=== PATIENT | female | born 1990 | race Caucasian/White ===

== ENCOUNTER → 2021-11-13 16:00 | Outpatient (ROUT) | payer MEDICAID, SELFPAY | PROVIDERS: PCP Family Medicine; Visit Provider Dermatology | DX: L03.211 Cellulitis of face (principal) | CPT/HCPCS: 87070; 87075; 87077; 87147; 87186; 87205 ==

== ENCOUNTER → 2022-03-27 11:41 | Outpatient (CLI) | payer OTHER, MEDICAID, SELFPAY | PROVIDERS: PCP Family Medicine; Visit Provider Physician Assistant Medical | DX: J02.9 Acute pharyngitis, unspecified (principal) | CPT/HCPCS: 87880 ==

== ENCOUNTER → 2022-06-11 14:41 | Outpatient (CLI) | payer OTHER, MEDICAID, SELFPAY ==
[2022-06-11 20:16] LABS: Urine N gonorrhoeae NOT DETECTED
[2022-06-11 20:33] LABS: Urine Chlamydia NOT DETECTED
== END ==
PROVIDERS: Visit Provider Obstetrics & Gynecology
DX: Z34.81 Encounter for supervision of other normal pregnancy, first trimester (principal); Z3A.08 8 weeks gestation of pregnancy
CPT/HCPCS: 87491; 87591

== ENCOUNTER → 2022-06-13 16:40 | Outpatient (CLI) | payer OTHER, MEDICAID, SELFPAY ==
--- NOTE | 2022-06-13 16:44 | DI.US.S_ITS ---
PROCEDURE: US OB <= 14 WEEKS FETUS INDICATIONS: dating and viability, irregular menses OUTSIDE/PRIOR DATING DATA: Last menstrual period (LMP): Unknown. LMP-based estimated date of delivery (SAROJ): Unknown. First dating scan (date and location): 06/13/2022. Estimated date of delivery (SAROJ) from first dating scan: Not applicable TECHNIQUE: Real-time scanning was performed of the fetus and maternal pelvic organs, with image documentation. COMPARISON: None. FINDINGS: Embryo: Intrauterine gestational sac is identified. There is an ill-defined focus of echogenicity which may represent a pole measuring 9 mm corresponding to 6 weeks 6 days. In addition, there is a focus of echogenicity within the inferior portion of the gestational sac measuring 1.4 x 1.7 x 1.5 cm. Heart rate: Not detected Maternal organs: Ovaries unremarkable. IMPRESSION: Intrauterine gestational sac without visualized yolk sac. There is an ill-defined echogenicity most likely representing a pole without defined heart tones. Given measurements, it is most consistent with demise . A 2nd more amorphous focus of echogenicity is noted in the inferior aspect of the gestational sac is present. This is likely representing perigestational hemorrhage with hematoma. We strive to produce accurate, complete, and clear reports of imaging services. To assist us in improving patient care, this report was composed using standard report templates and voice recognition software. Therefore, it may contain abnormal punctuation, insertions and/or omissions. Occasional wrong-word or sound-alike substitutions may occur. Though we review the report and make efforts to correct it, we do recommend that the report be read carefully in proper context to recognize any text inaccuracies. Dictated by: Spring Rodriguez M.D. on 06/14/2022 at 11:58 Approved by: Spring Rodriguez M.D. on 06/14/2022 at 12:45
== END ==
PROVIDERS: Referring Provider Obstetrics & Gynecology; Visit Provider Obstetrics & Gynecology
DX: O36.80X0 Pregnancy with inconclusive fetal viability, not applicable or unspecified (principal)
CPT/HCPCS: 76801; 76817

== ENCOUNTER → 2022-06-21 16:29 | Outpatient (CLI) | payer OTHER, MEDICAID, SELFPAY ==
[2022-06-21 18:21] LABS: Bilirubin Urine UA NEGATIVE (NEGATIVE); Color Urine UA YELLOW; Glucose Urine UA NEGATIVE (Negative); Ketones Urine UA NEGATIVE (NEGATIVE); Leukocyte Esterase Urine UA 2+ (NEGATIVE); Nitrite Urine UA NEGATIVE (Negative); Occult Blood Urine UA 3+ (Negative); Protein Urine UA 2+ (Negative); Specific Gravity Urine UA >=1.030 (1.000-1.035); Urobilinogen Urine UA 0.2 E.U./dL (0.2)
[2022-06-21 18:23] LABS: Appearance Urine UA CLOUDY; pH Urine UA 5.5 (4.5-8.0)
[2022-06-21 18:31] LABS: Bacteria Urine None Seen; Culture Indicated Urine Cult Not Indicated; RBC Urine 30-100/HPF (0-5/HPF); Squamous Epithelial Cell Urine 0-1 /HPF (0-5/HPF); WBC Urine 30-100/HPF (0-5/HPF)
== END ==
PROVIDERS: PCP Registered Nurse Diabetes Educator; Referring Provider Family Medicine; Visit Provider Family Medicine
DX: Z34.81 Encounter for supervision of other normal pregnancy, first trimester (principal)
CPT/HCPCS: 81003; 81015; 87077; 87086; 87186

== ENCOUNTER → 2022-09-13 13:27 | Outpatient (CLI) | payer OTHER, MEDICAID, SELFPAY | PROVIDERS: Visit Provider Family Medicine | DX: L01.00 Impetigo, unspecified (principal); J34.89 Other specified disorders of nose and nasal sinuses | CPT/HCPCS: 87070; 87075; 87205; 87252 ==

== ENCOUNTER → 2022-09-16 15:09 | Outpatient (CLI) | payer OTHER, MEDICAID, SELFPAY | PROVIDERS: Visit Provider Family Medicine | DX: L98.9 Disorder of the skin and subcutaneous tissue, unspecified (principal); R21 Rash and other nonspecific skin eruption | CPT/HCPCS: 87070; 87075; 87205; 87252 ==

== ENCOUNTER 2022-10-30 23:59 | Emergency (ER) | payer OTHER, MEDICAID, SELFPAY ==
[2022-10-31 00:04] VITALS: BP 131/105; PULSE 125; RESP 20; TEMP 36.6; O2SAT 97; BMI 19.8
--- NOTE | 2022-10-31 00:27 | ED.GENADULT ---
HPI - General Adult General Chief complaint: Urogenital-Female Stated complaint: UTI Time Seen by Provider: 10/31/22 00:19 Source: patient Mode of arrival: Ambulatory Limitations: no limitations History of Present Illness HPI narrative: Patient is a 32-year-old female who is here for evaluation of what she describes as urinary tract infection like symptoms. She states that for the past couple hours she is had burning itching lower abdominal pain and blood in her urine. She has had urinary tract infection in the past. She is also had a kidney infection in the past. She denies any fevers. Has not tried anything for this evenings symptoms prior to arrival. Related Data Previous Rx's Medication Instructions Recorded Lactobacillus rhamnosus GG 10 1 cap PO DAILY #30 caps 03/27/22 billion cell capsule (Culturelle) Vistaril 50 mg capsule 50 mg PO BID PRN anxiety #60 caps 06/11/22 (hydroxyzine pamoate) Zoloft 50 mg tablet (sertraline) 50 mg PO DAILY 30 days #30 tabs 06/11/22 propranolol 20 mg tablet See Rx Instructions .Route 07/02/22 .COMPLEX #90 tabs quetiapine 200 mg tablet See Rx Instructions .Route 07/02/22 .COMPLEX #30 tabs mupirocin 2 % topical ointment 1 applic topical TID PRN Impetigo 09/16/22 #22 grams sulfamethoxazole 800 1 tab PO BID #28 tabs 09/16/22 mg-trimethoprim 160 mg tablet (Bactrim DS) cephalexin 500 mg capsule 500 mg PO BID 5 days #10 caps 10/31/22 phenazopyridine 100 mg tablet 100 mg PO TID PRN pain 6 doses #6 10/31/22 (Pyridium) tabs Allergies Allergy/AdvReac Type Severity Reaction Status Date / Time No Known Allergies Allergy Uncoded 09/16/22 15:08 Review of Systems Constitutional Constitutional: Reports system reviewed and no additional complaints, except as documented Gastrointestinal Gastrointestinal: Reports system reviewed and no additional complaints, except as documented Genitourinary Genitourinary: Reports system reviewed and no additional complaints, except as documented Musculoskeletal Musculoskeletal: Reports system reviewed and no additional complaints, except as documented Integumentary/Breasts Skin/Breast: Reports system reviewed and no additional complaints, except as documented Patient History Medical History Acute pharyngitis due to other specified organisms Contraception management Hypomania Insomnia Migraine Neck pain PTSD (post-traumatic stress disorder) Strep sore throat Tachycardia Surgical History No pertinent past surgical history Family History Mother Skin cancer Grandmother Skin cancer Father Bipolar 2 disorder Family/Other PTSD (post-traumatic stress disorder) Grandfather Schizophrenia Psychosis Brother Depression Family/Other Borderline personality disorder Social History marital status: unmarried,living together details: Partner and patient happy about number of children: 0 household members: significant other lives independently: Yes caregiver/support person: No housing: condominium pets and animals: Yes (1 cat; aware of toxo precautions ) education level: college occupational status: employed and student current occupational exposures/hazards: Yes (aware of precautions) special michelle needs: No seatbelt use: always water heater temp set < 120 deg: Yes working smoke detector in home: Yes fire extinguisher in home: Yes carbon monox detector in home: Yes firearms in home: No do you feel safe at home: Yes Smoking Status: Never smoker second hand exposure: No alcohol intake: former substance use type: does not use during the past year weight has: other well-balanced diet: daily or most days daily servings fruits/ve or more times/day caffeine: Yes (1-2 cups coffee/week) Type(s) of exercise: walking and other frequency: daily additional social history: all members of her immediate family have PTSD. Partner's family is supportive of Patient today primarily wanting treatment for anxiety and depression. Psychiatric practitioner has taken her off her previous meds due to Smoking Status: Never smoker alcohol intake frequency: holidays/special occasions only Substance Use Type: marijuana Exam Initial Vital Signs Initial Vital Signs: Vital Signs Temperature 97.8 F 10/31/22 00:04 Pulse Rate 125 H 10/31/22 00:04 Respiratory Rate 20 10/31/22 00:04 Blood Pressure 131/105 H 10/31/22 00:04 Pulse Oximetry 97 10/31/22 00:04 Oxygen Delivery Method Room Air 06/15/23 00:04 Const General: cooperative, comfortable and No ill appearing HENMT Head: normal to inspection and normocephalic Resp Effort & Inspection: normal respiratory effort Cardio Rate: tachycardic GI Inspection: normal to inspection and non-distended Back/Spine/Pelvis Back: No CVA tenderness Skin General: no rashes or lesions noted Neuro General: patient alert, patient awake and moves all extremities Course Orders Ordered: ED Orders 10/31/22 00:15 Test Urine Stat Urinalysis and Microscopic Stat Urine Culture Stat Discontinued Medications Cephalexin HCl (Cephalexin 250 Mg Capsule) 500 mg PO NOW ONE Stop: 10/31/22 00:29 Last Admin: 10/31/22 00:33 Dose: 500 mg Documented By: MARCELO Ondansetron HCl (Ondansetron 4 Mg Odt Prepack) 1 bottle MISC SEEINSTR ONE Stop: 10/31/22 01:08 Last Admin: 10/31/22 01:14 Dose: 1 bottle Documented By: JENIFER Phenazopyridine HCl (Phenazopyridine 100 Mg Tablet) 100 mg PO NOW ONE Stop: 10/31/22 00:29 Last Admin: 10/31/22 00:33 Dose: 100 mg Documented By: MARCELO Vital Signs Vital signs: Vital Signs - 8 hr 10/31/22 00:04 10/31/22 01:16 Temperature 97.8 F Pulse Rate 125 H 96 H Respiratory Rate 20 16 Blood Pressure 131/105 H 115/80 Pulse Oximetry 97 98 Oxygen Delivery Method Room Air Room Air Medical Decision Making Lab Data Lab results reviewed: Yes I reviewed the patient's lab results. Labs: Lab Results 10/31/22 10/31/22 Range/Units 00:15 00:15 Urine Color Red Urine Appearance Turbid Urine pH 7.0 (4.5-8.0) Ur Specific [place] 1.020 (1.000-1.035) Urine Protein 3+ H (Negative) Urine Glucose (UA) Negative (Negative) g/dL Urine Ketones Trace H (NEGATIVE) Urine Occult Blood 3+ H (Negative) Urine Nitrate Negative (Negative) Urine Bilirubin Negative (NEGATIVE) Urine Urobilinogen 0.2 (0.2) E.U./dL Ur Leukocyte Esterase 1+ H (NEGATIVE) Urine RBC >100/hpf H (0-5/HPF) Urine WBC 1-5/hpf (0-5/HPF) Ur Squamous Epith Cells 0-1 /hpf (0-5/HPF) Urine Bacteria Occasional (0-1) (None) Ur Culture Indicated? Specimen cultured Urine Test Negative (Negative) MDM Narrative Medical decision making narrative: Patient is nontoxic appearing. She is no CVA tenderness. Is not vomiting. Afebrile. Patient has symptoms consistent with a urinary tract infection. She also has hematuria. I have low suspicion for kidney stone based on her presentation today. Patient tolerated the dose of antibiotics here in the ER. A prescription for the remainder of the course was sent to the pharmacy of her choice. No indication for admission or IV antibiotics. She was given return precautions. She expressed understanding. Discharge Plan Departure Patient Disposition: Home Clinical Impression: Urinary tract infection, Hematuria Instructions: DI for Urinary Tract Infection (UTI), DI for Hematuria Activity Restrictions/Additional Instructions: I do recommend that you take the antibiotics as directed. The Pyridium his an as-needed medicine to try to help with the urinary tract infection symptoms. Use the nausea medication as needed. Return to the emergency department for new or worsening symptoms. Prescriptions: New phenazopyridine [Pyridium] 100 mg tablet 100 mg PO TID PRN (Reason: pain) Qty: 6 0RF cephalexin 500 mg capsule 500 mg PO BID 5 Days Qty: 10 0RF No Action mupirocin 2 % ointment 1 applic topical TID PRN (Reason: Impetigo) Qty: 22 1RF sulfamethoxazole-trimethoprim [Bactrim DS] 800-160 mg tablet 1 tab PO BID Qty: 28 0RF Culturelle 10 billion cell capsule 1 cap PO DAILY Qty: 30 1RF quetiapine 200 mg tablet See Rx Instructions .ROUTE .COMPLEX Qty: 30 2RF Hold Instructions: med refills cancelled, not our patient Dose Instruction: TAKE 1 TABLET BY MOUTH DAILY Rx Instructions: TAKE 1 TABLET BY MOUTH DAILY propranolol 20 mg tablet See Rx Instructions .ROUTE .COMPLEX Qty: 90 2RF Hold Instructions: refills cancelled with [facility], this is not our patient Dose Instruction: TAKE 1 TABLET BY MOUTH THREE TIMES DAILY Rx Instructions: TAKE 1 TABLET BY MOUTH THREE TIMES DAILY hydroxyzine pamoate [Vistaril] 50 mg capsule 50 mg PO BID MDD 100mg PRN (Reason: anxiety) Qty: 60 3RF sertraline [Zoloft] 50 mg tablet 50 mg PO DAILY MDD 100mg 30 Days Qty: 30 3RF Referrals: Miscellaneous,Doctor, MD [Primary Care Provider] - Stand Alone Forms: Patient Portal/API
[2022-10-31 00:32] LABS: Appearance Urine UA TURBID; Bilirubin Urine UA NEGATIVE (NEGATIVE); Color Urine UA RED; Glucose Urine UA NEGATIVE (Negative); Ketones Urine UA TRACE (NEGATIVE); Leukocyte Esterase Urine UA 1+ (NEGATIVE); Nitrite Urine UA NEGATIVE (Negative); Occult Blood Urine UA 3+ (Negative); Protein Urine UA 3+ (Negative); Urobilinogen Urine UA 0.2 E.U./dL (0.2)
[2022-10-31 00:33] LABS: Pregnancy Test Urine Negative (Negative)
[2022-10-31] MEDS: cephALEXin 250 MG CAPSULE 500 MG PO (00:33)
[2022-10-31] MEDS: PHENAZOPYRIDINE 100 MG TABLET PO (00:33)
[2022-10-31 00:35] LABS: Bacteria Urine Occasional (0-1); Culture Indicated Urine Specimen Cultured; RBC Urine >100/HPF (0-5/HPF); Squamous Epithelial Cell Urine 0-1 /HPF (0-5/HPF); WBC Urine 1-5/HPF (0-5/HPF)
[2022-10-31] MEDS: ONDANSETRON 4 MG ODT PREPACK 1 BOTTLE MISC (01:14)
[2022-10-31 01:16] VITALS: BP 115/80; PULSE 96; RESP 16; O2SAT 98
== END 2022-10-31 01:17 | disposition home or self-care (01) ==
PROVIDERS: Emergency Provider Emergency Medicine
DX: N39.0 Urinary tract infection, site not specified (principal)
CPT/HCPCS: 81001; 81025; 87086; 99283

== ENCOUNTER → 2023-03-04 13:55 | Outpatient (CLI) | payer OTHER, MEDICAID, SELFPAY | PROVIDERS: Visit Provider Physician Assistant | DX: R21 Rash and other nonspecific skin eruption (principal) | CPT/HCPCS: 87070; 87075; 87077; 87147; 87186; 87205 ==

== ENCOUNTER → 2023-08-15 18:46 | Outpatient (CLI) | payer OTHER, MEDICAID, SELFPAY | PROVIDERS: Visit Provider Nurse Practitioner Family | DX: S01.102A Unspecified open wound of left eyelid and periocular area, initial encounter (principal) | CPT/HCPCS: 87070; 87075; 87205 ==

== ENCOUNTER 2024-04-16 13:39 | Emergency (ER) | payer OTHER, MEDICAID, SELFPAY ==
[2024-04-16 13:51] VITALS: BP 123/87; PULSE 110; RESP 18; TEMP 36.6; O2SAT 99; BMI 22.6
--- NOTE | 2024-04-16 14:14 | DI.US.S_ITS ---
PROCEDURE: US OB <= 14 WEEKS FETUS INDICATIONS: possible first trimester SAb OUTSIDE/PRIOR DATING DATA: Last menstrual period (LMP): 01/06/2024. LMP-based estimated date of delivery (SAROJ): 10/12/2024. First dating scan (date and location): 04/16/2024. Estimated date of delivery (SAROJ) from first dating scan: 10/06/2024. The calculations are made using the ultrasound SAROJ of 10/12/2024. TECHNIQUE: Real-time scanning was performed of the fetus and maternal pelvic organs, with image documentation. COMPARISON: [facility], US, US OB <= 14 WEEKS FETUS, 06/13/2022, 16:58. FINDINGS: BPD: 3.1 cm, 15 weeks 5 days. HC: 11.6 cm, 15 weeks 5 days. AC: 8.9 cm, 15 weeks 1 day. FL: 1.6 cm, 14 weeks 4 days. Heart rate: 150 beats per minute Cervical length: 3.8 cm [place]: Subjectively normal. Maternal organs: Ovaries not evaluated IMPRESSION: Living early 2nd trimester intrauterine with no sonographic evidence of complications. Current ultrasound dates are consistent with a 15 week 2 day . We strive to produce accurate, complete, and clear reports of imaging services. To assist us in improving patient care, this report was composed using standard report templates and voice recognition software. Therefore, it may contain abnormal punctuation, insertions and/or omissions. Occasional wrong-word or sound-alike substitutions may occur. Though we review the report and make efforts to correct it, we do recommend that the report be read carefully in proper context to recognize any text inaccuracies. Dictated by: Clive Bonds M.D. on 04/16/2024 at 16:23 Approved by: Clive Bonds M.D. on 04/16/2024 at 16:26
--- NOTE | 2024-04-16 14:14 | PC.NURSE ---
Pt cussing at nurse stating she cannot wait around and look at the jama. RN informed pt that MD will be the one to order Ultrasound. Currently pt personal consultant in department obtaining records for Dr. Farooq. Pt oriented to room and encouraged to use call light if there is anything pt needs. Pt stated clearly there is nothing you can get me.
[2024-04-16] MEDS: SODIUM CHLORIDE 0.9% 1,000 ML 1000 ML IV (14:27)
[2024-04-16 14:30] VITALS: BP 132/80; PULSE 113; O2SAT 100
[2024-04-16 14:35] LABS: Add Manual Diff / Slide Review NO; Basophils Absolute Auto 0 /uL (0-100); Basophils Percent Auto 0.5 % (0-2); Eosinophils Absolute Auto 100 /uL (0-450); Eosinophils Percent Auto 0.8 % (2-4); Hematocrit 38.5 % (36-46); Hemoglobin 13.4 g/dL (12.0-16.0); Lymphocytes Absolute Auto 1400 /uL (1100-4500); Lymphocytes Percent Auto 16.6 % (25-40); Mean Corpuscular HGB Conc 34.8 % (30-36); Mean Corpuscular Hemoglobin 31.3 PG (26-34); Monocytes Absolute Auto 500 /uL (0-900); Monocytes Percent Auto 5.5 % (3-14); Neutrophils Absolute Auto 6700 /uL (1500-7000); Neutrophils Percent Auto 76.6 % (50-75); Platelet Count 203 X10^3/uL (150-400); Red Blood Cell Count 4.27 X10^6/uL (4.0-5.2); Red Cell Distribution Width 13.6 % (11.6-14.8); White Blood Cell Count 8.7 X10^3/uL (4.5-11.0)
[2024-04-16 14:44] LABS: INR 0.9 (0.9-1.3); Prothrombin Time 10.5 SECONDS (9.4-12.5)
[2024-04-16 14:49] LABS: Alanine Aminotransferase 17 IU/L (<35); Albumin 4.1 g/dL (3.5-5.0); Albumin Globulin Ratio 1.5 (1.0-2.8); Alkaline Phosphatase 51 U/L (38-126); Aspartate Aminotransferase 23 IU/L (14-36); BUN Creatinine Ratio 17.5 (6-22); Bilirubin Total 0.4 mg/dL (0.2-1.3); Blood Urea Nitrogen 10 mg/dL (7-17); Calcium 9.6 mg/dL (8.4-10.2); Carbon Dioxide 23 mmol/L (22-32); Chloride 106 mmol/L (98-107); Estimated Glomerular Filt Rate > 60 mL/min (>60); Globulin 2.8 g/dL (1.7-4.1); Glucose 98 mg/dL (70-100); HEMOLYSIS < 15 (0-50); Potassium 3.7 mmol/L (3.4-5.1); Sodium 136 mmol/L (137-145); Total Protein 6.9 g/dL (6.3-8.2)
[2024-04-16 15:00] VITALS: BP 125/78; PULSE 105; O2SAT 100
--- NOTE | 2024-04-16 15:10 | ED_ITS ---
HPI - Female Genitourinary General Chief complaint: Vaginal Bleeding Stated complaint: vaginal bleeding 14 weeks Time Seen by Provider: 04/16/24 14:14 Source: patient Mode of arrival: Family Vehicle History of Present Illness HPI Narrative: 33-year-old female with history , has had prior ultrasound, SAROJ 10/16/2024, [facility] care [facility], at 1300 today had vaginal spotting and passage of blood without obvious gross tissue in toilet bowl, subsequent cramping, without gross amounts of subsequent vaginal bleeding. Related Data Previous Rx's Medication Instructions Recorded Lactobacillus rhamnosus GG 10 1 cap PO DAILY #30 caps 03/27/22 billion cell capsule (Culturelle) Vistaril 50 mg capsule 50 mg PO BID PRN anxiety #60 caps 06/11/22 (hydroxyzine pamoate) Zoloft 50 mg tablet (sertraline) 50 mg PO DAILY 30 days #30 tabs 06/11/22 propranolol 20 mg tablet See Rx Instructions .Route 07/02/22 .COMPLEX #90 tabs quetiapine 200 mg tablet See Rx Instructions .Route 07/02/22 .COMPLEX #30 tabs mupirocin 2 % topical ointment 1 applic topical TID #22 grams 12/11/23 sulfamethoxazole 800 1 tab PO BID #42 tabs 12/11/23 mg-trimethoprim 160 mg tablet (Bactrim DS) Allergies Allergy/AdvReac Type Severity Reaction Status Date / Time No Known Drug Allergies Allergy Verified 04/16/24 14:28 Patient History Medical History (Updated 04/16/24 @ 16:58 by Chidi Farooq MD) in first trimester with history of Tachycardia Hypomania PTSD (post-traumatic stress disorder) Strep sore throat Acute pharyngitis due to other specified organisms Contraception management Insomnia Migraine Neck pain Surgical History No pertinent past surgical history Family History Mother Skin cancer Grandmother Skin cancer Father Bipolar 2 disorder Family/Other PTSD (post-traumatic stress disorder) Grandfather Schizophrenia Psychosis Brother Depression Family/Other Borderline personality disorder alcohol intake frequency: holidays/special occasions only Substance Use Type: marijuana Exam Narrative Exam Narrative: GENERAL: Well-developed patient, in mild distress. HEAD: Atraumatic. Normocephalic. EYES: White sclerae, pupils equal and round ENT: No gross facial trauma obvious NECK: Trachea midline. CARDIOVASCULAR: Regular rate and rhythm without murmurs, gallops, or rubs. RESPIRATORY: Clear to auscultation. Breath sounds equal bilaterally. No wheezes, rales, or rhonchi. GASTROINTESTINAL: Abdomen soft, non-tender, nondistended. EXTREMITIES: No edema or joint tenderness. NEURO: Motor functions grossly nonfocal Initial Vital Signs Initial Vital Signs: Vital Signs Temperature 97.8 F 04/16/24 13:51 Pulse Rate 110 H 04/16/24 13:51 Respiratory Rate 18 04/16/24 13:51 Blood Pressure 123/87 04/16/24 13:51 Pulse Oximetry 99 04/16/24 13:51 Oxygen Delivery Method Room Air 04/16/24 13:51 Course Orders Ordered: ED Orders 04/16/24 14:14 US OB <= 14 weeks fetus Stat 04/16/24 14:26 ABO RH Type Stat CBC Auto Diff [Complete Blood Count AUTO DIFF] Stat CMP [Comprehensive Metabolic Panel] Stat HCG Quantitative /Beta subunit Stat Prothrombin Time INR Stat Discontinued Medications Sodium Chloride (Normal Saline 0.9%) 1,000 mls @ 1,000 mls/hr IV BOLUS ONE Stop: 04/16/24 15:13 Last Infusion: 04/16/24 15:23 Dose: Infused Documented By: Admin: 04/16/24 14:27 Dose: 1,000 mls/hr Documented By: IVETTE Vital Signs Vital signs: Vital Signs - 8 hr 04/16/24 13:51 04/16/24 14:30 04/16/24 14:30 Temperature 97.8 F Pulse Rate 110 H 113 H Respiratory Rate 18 Blood Pressure 123/87 132/80 Pulse Oximetry 99 100 Oxygen Delivery Method Room Air 04/16/24 15:00 04/16/24 15:00 04/16/24 15:30 Temperature Pulse Rate 105 H Respiratory Rate Blood Pressure 125/78 135/88 Pulse Oximetry 100 Oxygen Delivery Method 04/16/24 15:30 04/16/24 16:00 04/16/24 16:00 Temperature Pulse Rate 100 H 103 H Respiratory Rate Blood Pressure 133/89 Pulse Oximetry 100 100 Oxygen Delivery Method 04/16/24 17:09 04/16/24 17:09 Temperature Pulse Rate 97 H Respiratory Rate Blood Pressure 131/90 Pulse Oximetry 93 Oxygen Delivery Method MDM - Female Genitourinary Lab Data Attestation: I reviewed the patient's lab results. Lab results narrative: White blood cell count 8700, hemoglobin 13.4, platelets adequate. Basic metabolic panel normal. Liver functions unremarkable. Blood type B positive noted. Serum hCG 20126 noted. 04/16/24 14:26 04/16/24 14:26 Labs: Lab Results 04/16/24 Range/Units 14:26 WBC 8.7 (4.5-11.0) X10^3/uL RBC 4.27 (4.0-5.2) X10^6/uL Hgb 13.4 (12.0-16.0) g/dL Hct 38.5 (36-46) % MCV 90.0 (80-100) fL MCH 31.3 (26-34) PG MCHC 34.8 (30-36) % RDW 13.6 (11.6-14.8) % Plt Count 203 (150-400) X10^3/uL Neut % (Auto) 76.6 H (50-75) % Lymph % (Auto) 16.6 L (25-40) % [place] % (Auto) 5.5 (3-14) % Eos % (Auto) 0.8 L (2-4) % Baso % (Auto) 0.5 (0-2) % Neut # (Auto) 6700 (0942-3058) /uL Lymph # (Auto) 1400 (1789-9694) /uL [place] # (Auto) 500 (0-900) /uL Eos # (Auto) 100 (0-450) /uL Baso # (Auto) 0 (0-100) /uL PT 10.5 (9.4-12.5) SECONDS INR 0.9 (0.9-1.3) Sodium 136 L (137-145) mmol/L Potassium 3.7 (3.4-5.1) mmol/L Chloride 106 (98-107) mmol/L Carbon Dioxide 23 (22-32) mmol/L BUN 10 (7-17) mg/dL Creatinine 0.57 (0.52-1.04) mg/dL Estimated GFR > 60 (>60) mL/min BUN/Creatinine Ratio 17.5 (6-22) Glucose 98 (70-100) mg/dL Calcium 9.6 (8.4-10.2) mg/dL Total Bilirubin 0.4 (0.2-1.3) mg/dL AST 23 (14-36) IU/L ALT 17 (<35) IU/L Alkaline Phosphatase 51 (38-126) U/L Total Protein 6.9 (6.3-8.2) g/dL Albumin 4.1 (3.5-5.0) g/dL Globulin 2.8 (1.7-4.1) g/dL Albumin/Globulin Ratio 1.5 (1.0-2.8) HCG, Quant 87421 mIU/mL Blood Type B Positive Imaging Data OB ultrasound greater than 14 weeks: Radiologist's Impression: [address] [address] Ultrasound Report Signed Patient: Ele Adams MR#: [id number] : 1990 Acct:[id number] Age/Sex: 33 / F Date of Service: 04/16/24 Loc: ED Accession Number: [id number] Procedure: US OB <= 14 weeks fetus Ordering Provider: Chidi Farooq MD PROCEDURE: US OB <= 14 WEEKS FETUS INDICATIONS: possible first trimester SAb OUTSIDE/PRIOR DATING DATA: Last menstrual period (LMP): 01/06/2024. LMP-based estimated date of delivery (SAROJ): 10/12/2024. First dating scan (date and location): 04/16/2024. Estimated date of delivery (SAROJ) from first dating scan: 10/06/2024. The calculations are made using the ultrasound SAROJ of 10/12/2024. TECHNIQUE: Real-time scanning was performed of the fetus and maternal pelvic organs, with image documentation. COMPARISON: [facility], US, US OB <= 14 WEEKS FETUS, 06/13/2022, 16:58. FINDINGS: BPD: 3.1 cm, 15 weeks 5 days. HC: 11.6 cm, 15 weeks 5 days. AC: 8.9 cm, 15 weeks 1 day. FL: 1.6 cm, 14 weeks 4 days. Heart rate: 150 beats per minute Cervical length: 3.8 cm [place]: Subjectively normal. Maternal organs: Ovaries not evaluated IMPRESSION: Living early 2nd trimester intrauterine with no sonographic evidence of complications. Current ultrasound dates are consistent with a 15 week 2 day . We strive to produce accurate, complete, and clear reports of imaging services. To assist us in improving patient care, this report was composed using standard report templates and voice recognition software. Therefore, it may contain abnormal punctuation, insertions and/or omissions. Occasional wrong-word or sound-alike substitutions may occur. Though we review the report and make efforts to correct it, we do recommend that the report be read carefully in proper context to recognize any text inaccuracies. Dictated by: Clive Bonds M.D. on 04/16/2024 at 16:23 Approved by: Clive Bonds M.D. on 04/16/2024 at 16:26 [facility] Narrative Medical decision making narrative: 33-year-old female SAb2 at 14 weeks gestation with vaginal bleeding earlier this afternoon, cramping, some clot and toilet bowl. No fever, unremarkable vital signs. Abdominal exam unremarkable. Outside records review previous history SAb2, two prior miscarriages noted, last menstrual period recorded 12/13/23, patient had prior pelvic ultrasound 03/02/2024 showing 7 weeks 3 days pole. Patient had ultrasound 03/24/2024 showing 10 week 4 days composite age intrauterine , SAROJ that visit listed 10/16/2024. Patient somewhat hostile, defensive, seemed to be upset that records from outside facility unbeknownst to be were not reviewed, though I did review the triage nursing note. During subsequent examination patient frequently sarcastic and uncooperative. [place] ED RN present during my physical examination. Initial consulting technical support assistant stated to me that she attempted to do the procedure but patient was quite rude to her, technical support assistant is refusing to do the study, deferring to a colleague, awaiting arrival of alternate technical support assistant. New technical support assistant performed procedure. [place] live IUP, heart rate 155, 15 weeks 2 days estimated size, cervix closed. Verbal tech report. Await Radiology report. Radiology report similar findings, see report, copy given to patient, discharged home with , pelvic rest advised, f/u with provider advised Discharge Plan Departure Patient Disposition: Home Clinical Impression: Threatened miscarriage Instructions: DI for Threatened Activity Restrictions/Additional Instructions: History of prior miscarriages, current 14-15 weeks gestation, vaginal cramping and passage of clot without obvious tissue earlier today by report, no fever on triage, no significant tenderness on trans abdominal examination. Ultrasound pelvis performed tonight showed intrauterine live with composite estimated gestational age 15 weeks 2 days at this time. No acute changes mentioned on the radiology report. A copy of the radiologist's report was provided. Follow up with your care provider as planned. Pelvic rest advised. Return to this/nearest emergency department for any change worsening symptoms or any concerns prior Prescriptions: No Action mupirocin 2 % ointment 1 applic topical TID Qty: 22 2RF sulfamethoxazole-trimethoprim [Bactrim DS] 800-160 mg tablet 1 tab PO BID Qty: 42 0RF Culturelle 10 billion cell capsule 1 cap PO DAILY Qty: 30 1RF quetiapine 200 mg tablet See Rx Instructions .ROUTE .COMPLEX Qty: 30 2RF Hold Instructions: med refills cancelled, not our patient Dose Instruction: TAKE 1 TABLET BY MOUTH DAILY Rx Instructions: TAKE 1 TABLET BY MOUTH DAILY propranolol 20 mg tablet See Rx Instructions .ROUTE .COMPLEX Qty: 90 2RF Hold Instructions: refills cancelled with [facility], this is not our patient Dose Instruction: TAKE 1 TABLET BY MOUTH THREE TIMES DAILY Rx Instructions: TAKE 1 TABLET BY MOUTH THREE TIMES DAILY hydroxyzine pamoate [Vistaril] 50 mg capsule 50 mg PO BID MDD 100mg PRN (Reason: anxiety) Qty: 60 3RF sertraline [Zoloft] 50 mg tablet 50 mg PO DAILY MDD 100mg 30 Days Qty: 30 3RF Referrals: Roosevelt Eugene MD [Primary Care Provider] - Stand Alone Forms: Patient Portal/API/Survey
--- NOTE | 2024-04-16 15:13 | PC.NURSE ---
While assessing pt MD Farooq asked pt to take a deep breath with stethoscope in; during which pt stated it's hard to breathe with your staff. Pt argumentative w/ MD Farooq evaluation of H&P. MD Farooq, this RN, pt, pt significant other, PROJECT ARCHITECT, and sister/friend at bedside.
--- NOTE | 2024-04-16 15:18 | PC.NURSE ---
Pt states she has had 2 miscarriages in the past. Pt states previous miscarriages were around 5 and 10 weeks along. Pt states she feels pressure but no real cramping. Pt states she had a concerning amount of blood in toilet but states the amount of bleeding seems to have calmed down. Pt states she has chronic headaches but denies any new onset symptoms. Pt denies CP.
[2024-04-16 15:30] VITALS: BP 135/88; PULSE 100; O2SAT 100
[2024-04-16 15:30] LABS: HCG Quantitative /Beta subunit 50162 mIU/mL
[2024-04-16 16:00] VITALS: BP 133/89; PULSE 103; O2SAT 100
[2024-04-16 17:09] VITALS: BP 131/90; PULSE 97; O2SAT 93
== END 2024-04-16 17:11 | disposition home or self-care (01) ==
PROVIDERS: Emergency Provider Emergency Medicine; PCP Family Medicine
DX: O20.0 Threatened abortion (principal); Z3A.15 15 weeks gestation of pregnancy
CPT/HCPCS: 76801; 76817; 80053; 84702; 85025; 85610; 86900; 86901; 96360; 99283; 99284

== ENCOUNTER → 2024-05-27 13:58 | Outpatient (CLI) | payer OTHER, SELFPAY ==
--- NOTE | 2024-05-27 13:59 | DI.US.S_ITS ---
PROCEDURE: US OB >= 14 WEEKS FETUS INDICATIONS: 20WK ANATOMY SCAN OUTSIDE/PRIOR DATING DATA: Last menstrual period (LMP): 01/06/24. LMP-based estimated date of delivery (SAROJ): 10/12/24. First dating scan (date and location): 40186. Estimated date of delivery (SAROJ) from first dating scan: 10/06/24. The calculations are made using the provider stated SAROJ of 10/12/24. TECHNIQUE: Real-time scanning was performed of the fetus, with image documentation and biometric measurements. Endovaginal scanning: To accurately evaluate low lying placenta. COMPARISON: None. FINDINGS: General: A single living intrauterine gestation is present. Presentation: Vertex. Placenta: Placental position is anterior. The placental edge is between 0.5 and 0.9 cm from the internal cervical os. Amniotic fluid index: 11 cm, normal range is 5-24 cm. Single deepest vertical pocket is 3.9 cm. heart rate: 157 beats per minute. Maternal cervical canal: Closed and four point cm long. Normal lower limit is 2.5 cm. biometrics: Biparietal diameter: 4.9 cm, 20 weeks six days Head circumference: 18.2 cm, 20 weeks four days Abdominal circumference: 15.8 cm, 21 weeks 0 days Femur length: 3.3 cm, 20 weeks 0 days Clinically estimated gestational age: 20 weeks two days Composite gestational age from present scan: 20 weeks five days Estimated weight and percentile: 367 g, 65th percentile Anatomic survey: Neuro: Ventricles are non-dilated at less than 10 mm. Cisterna magna is normal at 3-11 mm. Cerebellum is normal in size and morphology. Nuchal skin fold: Normal at less than 6 mm between 14-21 weeks gestational age. Face: Nose and lips, facial profile are normal. Spine: No evidence for spina bifida. Heart: 4-chambered heart is present, with normal ventricular outflow tracts. Diaphragm: Diaphragm is intact. Stomach: Left-sided stomach is present. Kidneys: No hydronephrosis. Normal is less than 5 mm in 2nd trimester, less than 7 mm in 3rd trimester. Cord: 3-vessel cord has orthotopic insertion. Bladder: Normal in size. Extremities: All 4 extremities identified. IMPRESSION: Single living intrauterine with estimated weight at the 65th percentile. Symmetric growth and normal anatomy. Anterior low lying placenta. Recommend re-evaluation in the 3rd trimester. Closed cervix and normal amniotic fluid volume. We strive to produce accurate, complete, and clear reports of imaging services. To assist us in improving patient care, this report was composed using standard report templates and voice recognition software. Therefore, it may contain abnormal punctuation, insertions and/or omissions. Occasional wrong-word or sound-alike substitutions may occur. Though we review the report and make efforts to correct it, we do recommend that the report be read carefully in proper context to recognize any text inaccuracies. Dictated by: Janny Romano M.D. on 05/27/2024 at 21:49 Approved by: Janny Romano M.D. on 05/27/2024 at 21:54
== END ==
PROVIDERS: PCP Family Medicine; Referring Provider Advanced Practice Midwife; Visit Provider Advanced Practice Midwife
DX: O44.42 Low lying placenta NOS or without hemorrhage, second trimester (principal); Z3A.20 20 weeks gestation of pregnancy
CPT/HCPCS: 76811

== ENCOUNTER 2024-07-22 14:30 | Outpatient (RCR) | payer OTHER, SELFPAY ==
--- NOTE | 2024-06-29 16:15 | PT.OIE ---
Current Diagnoses Lordosis, unspecified, lumbar region (06/29/24) Sacroiliitis, not elsewhere classified (06/29/24) Low back pain, unspecified (06/29/24) Muscle weakness (generalized) (06/29/24) Pelvic and perineal pain (06/29/24) Past Medical History (Last Updated 12/11/23 @ 15:57 by Roosevelt Eugene MD) Acute pharyngitis due to other specified organisms Contraception management Hypomania Insomnia Migraine Neck pain in first trimester with history of PTSD (post-traumatic stress disorder) Strep sore throat Tachycardia Past Surgical History (Last Reviewed 03/04/23 @ 13:56 by Basia Og PA-C) No pertinent past surgical history Visit Care Team Role Provider Type Roosevelt Eugene MD Family Provider Physician Primary Care Provider Specialty: Family Practice Obstetrics Address: [address] [place] [address], [id number] Email: [email or web address] Aisha Tello CNM, DOMINIQUE Attending Provider Advanced Compatibility Test Engineer Referring Provider Specialty: PASTEURISER OPERATOR Address: [address] [place] [address], [id number] Email: [email or web address] [facility] Initial Evaluation PT-OP-A Visit Information Start: 06/24/24 16:38 Freq: Status: Active Protocol: Document 06/29/24 09:04 [facility] (Rec: 06/29/24 10:21 [facility] [id number]) Out-Patient Physical Therapy Visit Information Visit Information Visit Type Initial Evaluation Visit Start Time 09:00 Visit Stop Time 09:45 Visit Number 1 Evaluation Information Evaluation Date 06/29/24 PT-OP-B Current Condition Start: 06/24/24 16:38 Freq: Status: Active Protocol: Document 06/29/24 09:04 [facility] (Rec: 06/29/24 10:21 [facility] [id number]) Current Condition History of Current Condition Onset Date increased back pain with Current Complaints back pain from her neck to the sacrum with scoliosis and History of Current Condition Ele is a 33 year old female with a history of scoliosis who is 25 1/2 weeks with back pain that is rated 6 .5/10 depending on the day. She has a history of disc issues and back pain on and off since she was a teenager. She notes her right side from her rib cage to her pelvis feels compressed, she is experiencing bad leg craps, and she notes baby is super low and she feels downward pressure. Treatment Goals Patient/Caregiver Goals Ele's goals are to help with decreasing pain with Current Functional Impairments (Reported) Functional Limitations- ADL's pt is noting it is becomming more difficult to compete ADL' s as she progresses in her PT-OP-C Subjective Start: 06/24/24 16:38 Freq: Status: Active Protocol: Document 06/29/24 09:04 [facility] (Rec: 06/29/24 10:21 [facility] [id number]) OP-PT Pain Assessment Pain Assessment Grid Paper Pain Assessment Grid Completed Yes Location thoracic and lumbar spine Pain Location Details pain is rated as 6.5/10 depending on the day Scale Used Numeric (0 - 10) Description Aching,Tightness Frequency Frequent PT-OP-F Manual Assessment Start: 06/24/24 16:38 Freq: Status: Active Protocol: Document 06/29/24 09:04 [facility] (Rec: 06/29/24 10:21 [facility] [id number]) Manual Assessments Soft Tissue Assessment Soft Tissue Mobility Assessment shifts weight to the left left iliopsoas tight and guarded Joint Mobility Assessment Joint Mobility Assessment sidebending laterally bothers her cat on right side PT-OP-J Posture/Palpation/Skin Start: 06/24/24 16:38 Freq: Status: Active Protocol: Document 06/29/24 09:04 [facility] (Rec: 06/29/24 10:21 [facility] [id number]) Posture Evaluation Position Standing Evaluation View Lateral L-Spine Posture Increased Lordosis,Flexible Scoliosis on (L),Shifted Left Comments Posture Comments increased extension thoracolumbar junction, increased lordosis with iliopsoas tightness L>R PT-OP-K Range of Motion Start: 06/29/24 10:25 Freq: Status: Active Protocol: Document 06/29/24 09:00 [facility] (Rec: 06/29/24 10:27 [facility] [id number]) Lumbar Spine Range of Motion Lumbar Spine Active Lateral Flexion Left 15 Lateral Flexion Right 10 ROM Limitations Soft Tissue Tightness,Pain Comments Ele presents with increased lumbar lordosis and working in quadruped she has limited lumbar flexion, thoracic extension is irritating to her back, decreased sidebending Bilaterally and this causes pain but it is greater on the right side Hip Goniometric Range of Motion Hip Left Hip ROM WFL No Testing Position Supine Comments decreased iliopsoas length L>R + ena test on the left with increased lumbar lordosis . Hip ROM Limitations Hip ROM Limitations Soft Tissue Tightness Comments iliopsoas tightness and guarding L >R PT-OP-M Strength Start: 06/29/24 10:25 Freq: Status: Active Protocol: Document 06/29/24 09:00 [facility] (Rec: 06/29/24 10:27 [facility] [id number]) Trunk Strength Trunk Manual Muscle Testing Testing Position Supine Core Stabilization decreased ability to facilitate a TA contraction due to stretch weakness with PT-OP-Q Treatments Start: 06/24/24 16:38 Freq: Status: Active Protocol: Document 06/29/24 09:04 [facility] (Rec: 06/29/24 10:21 [facility] [id number]) Therapeutic Exercises Other Exercises seated iliopsoas stretch Reps/Minutes 2 x 30 sec holds Comments left greater than right sided tightness quadruped TA Reps/Minutes hold 5 second repeat 10 reps quadruped rockbacks Reps/Minutes x 10 reps quadruped sidebends Reps/Minutes x 10 reps Comments to the left side only cat cow Reps/Minutes x 10 PT-OP-T Assessment and Plan Start: 06/24/24 16:38 Freq: Status: Active Protocol: Document 06/29/24 09:04 [facility] (Rec: 06/29/24 10:21 [facility] [id number]) Physical Therapy Assessment Rehab Potential Rehabilitation Potential Excellent Evaluation Complexity Number of Personal Factors/Comorbidities 1-2 Number of Body Systems Impaired 3 Clinical Presentation at Evaluation Evolving Impairments Impairments Activity Tolerance,Functional Activities,Functional Mobility ,Pain,Posture,Soft Tissue Mobility,Strength Goals 3 Impairment Increased lumbar lordosis and increased iliopsoas tightness more so on the left side Short Term Goal (STG) Ele is educated in exercises to work on reducing the increased lordosis and improving length of the iliopsoas to decrease strain to the low back STG Duration 4 weeks 2 Impairment Ele lacks a home program of exercises and stretches she can do for the remaining of her and post Yard Switcher Goal (LTG) Ele is independent with a HEP LTG Duration 8 weeks 1 Impairment thoracic and lumbar pain that is increasing with limiting Ele's ability to perform ADL's. Ele reports her pain as 6.5/10 [employer] Goal (LTG) Ele reports pain levels are decreased and she is able to continue with household activities for her last trimester taking breaks when needed. LTG Duration 8 weeks Assessment Summary Assessment Ele is a 33 year old female referred to PT with c/o increasing back pain with . She is currently 25 weeks and has a history of scoliosis with episodes of back pain and disc issues since she was a teenager. With she is experiencing a increase of low back and mid back pain symptoms. She seeks guidance as to how to support her body during her and to be able to manage her pain. She is noticing it is becoming more difficult to complete ADL's with her symptoms. She is not currently working so she is able to rest when she needs to . With examination today Ele stands with her weight shifted to the left side. Her right pelvis is elevated with the scoliosis. She is restricted in sidebending ROM most notibly to the right side. She stands in a increase lumbar lordosis and does report a newer onset of calf tightness and cramping. Her lumbar parapsinals are guarded and tight. In a quadruped positions she is limited with lumbar flexion and we worked on this ROM today. She was able to work on sidebending left in quadruped to help open up the right side of her low back. She is weak in the transverse abdominal musculature and we will work on isolation of her lower abdominal wall to help support the lumbar spine and SI joint . Ele presents with left sided iliopsoas tightness and guarded as compared to the right. She was shown how to gently stretch her hip flexors in a seated position. Ele is a good candidate for PT. Treatment will focus on stabilization exercises to support her spine with a growing baby as well as gentle stretches to decrease tension in the low back and hip flexors. Manual therapy techniques will also be used to reduce muscular tension. Physical Therapy Plan Frequency and Duration Frequency of Treatment 1x/Week Duration of treatment (weeks) 8 Plan of Care Start Date 06/29/24 Plan of Care End Date 08/24/24 Therapeutic Interventions Therapeutic Interventions Home Exercise Program,Manual Therapy,Neuromuscular Re- education,Patient/Caregiver Education,Self-Care/Home Management,Soft Tissue Mobilization,Therapeutic Exercises
--- NOTE | 2024-06-29 16:17 | PT.OPPOC ---
Physical, Occupational & Speech Therapy At [facility] Current Diagnoses Lordosis, unspecified, lumbar region (06/29/24) Sacroiliitis, not elsewhere classified (06/29/24) Low back pain, unspecified (06/29/24) Muscle weakness (generalized) (06/29/24) Pelvic and perineal pain (06/29/24) Visit Care Team Role Provider Type Roosevelt Eugene MD Family Provider Physician Primary Care Provider Specialty: Family Practice Obstetrics Address: [address] [place] [address], [address] Email: [email or web address] Aisha Tello CNM, [employer] Attending Provider Advanced Agronomy Internship Referring Provider Specialty: LOAN SPECIALIST Address: [address] [place] [address], [id number] Email: [email or web address] Plan Of Care PT-OP-B Current Condition Start: 06/24/24 16:38 Freq: Status: Active Protocol: Document 06/29/24 09:04 [facility] (Rec: 06/29/24 10:21 [facility] [id number]) Current Condition History of Current Condition Onset Date increased back pain with Current Complaints back pain from her neck to the sacrum with scoliosis and History of Current Condition Ele is a 33 year old female with a history of scoliosis who is 25 1/2 weeks with back pain that is rated 6 .5/10 depending on the day. She has a history of disc issues and back pain on and off since she was a teenager. She notes her right side from her rib cage to her pelvis feels compressed, she is experiencing bad leg craps, and she notes baby is super low and she feels downward pressure. Treatment Goals Patient/Caregiver Goals Ele's goals are to help with decreasing pain with Current Functional Impairments (Reported) Functional Limitations- ADL's pt is noting it is becoming more difficult to compete ADL' s as she progresses in her PT-OP-T Assessment and Plan Start: 06/24/24 16:38 Freq: Status: Active Protocol: Document 06/29/24 09:04 [facility] (Rec: 06/29/24 10:21 [facility] [id number]) Physical Therapy Assessment Rehab Potential Rehabilitation Potential Excellent Evaluation Complexity Number of Personal Factors/Comorbidities 1-2 Number of Body Systems Impaired 3 Clinical Presentation at Evaluation Evolving Impairments Impairments Activity Tolerance,Functional Activities,Functional Mobility ,Pain,Posture,Soft Tissue Mobility,Strength Goals 3 Impairment Increased lumbar lordosis and increased iliopsoas tightness more so on the left side Short Term Goal (STG) Ele is educated in exercises to work on reducing the increased lordosis and improving length of the iliopsoas to decrease strain to the low back STG Duration 4 weeks 2 Impairment Ele lacks a home program of exercises and stretches she can do for the remaining of her and post [facility] Goal (LTG) Ele is independent with a HEP LTG Duration 8 weeks 1 Impairment thoracic and lumbar pain that is increasing with limiting Ele's ability to perform ADL's. Ele reports her pain as 6.5/10 Conductor Symphonic Orchestra Goal (LTG) Ele reports pain levels are decreased and she is able to continue with household activities for her last trimester taking breaks when needed. LTG Duration 8 weeks Assessment Summary Assessment Ele is a 33 year old female referred to PT with c/o increasing back pain with . She is currently 25 weeks and has a history of scoliosis with episodes of back pain and disc issues since she was a teenager. With she is experiencing a increase of low back and mid back pain symptoms. She seeks guidance as to how to support her body during her and to be able to manage her pain. She is noticing it is becoming more difficult to complete ADL's with her symptoms. She is not currently working so she is able to rest when she needs to . With examination today Ele stands with her weight shifted to the left side. Her right pelvis is elevated with the scoliosis. She is restricted in sidebending ROM most notably to the right side. She stands in a increase lumbar lordosis and does report a newer onset of calf tightness and cramping. Her lumbar parapsinals are guarded and tight. In a quadruped positions she is limited with lumbar flexion and we worked on this ROM today. She was able to work on sidebending left in quadruped to help open up the right side of her low back. She is weak in the transverse abdominal musculature and we will work on isolation of her lower abdominal wall to help support the lumbar spine and SI joint . Ele presents with left sided iliopsoas tightness and guarded as compared to the right. She was shown how to gently stretch her hip flexors in a seated position. Ele is a good candidate for PT. Treatment will focus on stabilization exercises to support her spine with a growing baby as well as gentle stretches to decrease tension in the low back and hip flexors. Manual therapy techniques will also be used to reduce muscular tension. Physical Therapy Plan Frequency and Duration Frequency of Treatment 1x/Week Duration of treatment (weeks) 8 Plan of Care Start Date 06/29/24 Plan of Care End Date 08/24/24 Therapeutic Interventions Therapeutic Interventions Home Exercise Program,Manual Therapy,Neuromuscular Re- education,Patient/Caregiver Education,Self-Care/Home Management,Soft Tissue Mobilization,Therapeutic Exercises Plan of Care Dates Plan of Care Start Date 06/29/24 Plan of Care End Date 08/24/24 Electronically Signed by: Amaya Domingo, PT 06/29/24 4634 If you are in agreement with this Plan of Care, please return a signed and dated copy. I have reviewed this Plan of Care and certify that the skilled therapy services above are required to meet the patient?s needs. Physician Signature Date Printed Name and Credentials Clinical Instructor Signature Printed Name and Credentials
--- NOTE | 2024-07-08 14:05 | PT.OTN ---
Current Diagnoses Lordosis, unspecified, lumbar region (07/08/24) Sacroiliitis, not elsewhere classified (07/08/24) Low back pain, unspecified (07/08/24) Muscle weakness (generalized) (07/08/24) Pelvic and perineal pain (07/08/24) Physical Therapy Treatment Note PT-OP-A Visit Information Start: 06/24/24 16:38 Freq: Status: Active Protocol: Document 07/08/24 13:01 [facility] (Rec: 07/08/24 14:04 [facility] [id number]) Out-Patient Physical Therapy Visit Information Visit Information Visit Type Treatment Note Visit Start Time 13:00 Visit Stop Time 13:45 Visit Number 2 PT-OP-B Current Condition Start: 06/24/24 16:38 Freq: Status: Active Protocol: Document 06/29/24 09:04 [facility] (Rec: 06/29/24 10:21 [facility] [id number]) Current Condition History of Current Condition Onset Date increased back pain with Current Complaints back pain from her neck to the sacrum with scoliosis and History of Current Condition Ele is a 33 year old female with a history of scoliosis who is 25 1/2 weeks with back pain that is rated 6 .5/10 depending on the day. She has a history of disc issues and back pain on and off since she was a teenager. She notes her right side from her rib cage to her pelvis feels compressed, she is experiencing bad leg craps, and she notes baby is super low and she feels downward pressure. Treatment Goals Patient/Caregiver Goals Ele's goals are to help with decreasing pain with Current Functional Impairments (Reported) Functional Limitations- ADL's pt is noting it is becomming more difficult to compete ADL' s as she progresses in her PT-OP-C Subjective Start: 06/24/24 16:38 Freq: Status: Active Protocol: Document 07/08/24 13:01 [facility] (Rec: 07/08/24 14:04 [facility] [id number]) OP-PT Subjective Patient Comments Patient Comments Ele felt that she was so tight that she couldn't do her exercises. She notes she feels pain today and asks about manual therapry techniques we could try PT-OP-F Manual Assessment Start: 06/24/24 16:38 Freq: Status: Active Protocol: Document 06/29/24 09:04 [facility] (Rec: 06/29/24 10:21 [facility] [id number]) Manual Assessments Soft Tissue Assessment Soft Tissue Mobility Assessment shifts weight to the left left iliopsoas tight and guarded Joint Mobility Assessment Joint Mobility Assessment sidebending laterally bothers her cat on right side PT-OP-J Posture/Palpation/Skin Start: 06/24/24 16:38 Freq: Status: Active Protocol: Document 06/29/24 09:04 [facility] (Rec: 06/29/24 10:21 [facility] [id number]) Posture Evaluation Position Standing Evaluation View Lateral L-Spine Posture Increased Lordosis,Flexible Scoliosis on (L),Shifted Left Comments Posture Comments increased extension thoracolumbar junction, increased lordosis with iliopsoas tightness L>R PT-OP-K Range of Motion Start: 06/29/24 10:25 Freq: Status: Active Protocol: Document 06/29/24 09:00 [facility] (Rec: 06/29/24 10:27 [facility] [id number]) Lumbar Spine Range of Motion Lumbar Spine Active Lateral Flexion Left 15 Lateral Flexion Right 10 ROM Limitations Soft Tissue Tightness,Pain Comments Ele presents with increased lumbar lordosis and working in quadruped she has limited lumbar flexion, thoracic extension is irritating to her back, decreased sidebending B and this causes pain but it is greater on the right side Hip Goniometric Range of Motion Hip Left Hip ROM WFL No Testing Position Supine Comments decreased iliopsoas length L>R + ena test on the left with increased lumbar lordosis . Hip ROM Limitations Hip ROM Limitations Soft Tissue Tightness Comments iliopsoas tightness and guarding L >R PT-OP-M Strength Start: 06/29/24 10:25 Freq: Status: Active Protocol: Document 06/29/24 09:00 [facility] (Rec: 06/29/24 10:27 [facility] [id number]) Trunk Strength Trunk Manual Muscle Testing Testing Position Supine Core Stabilization decreased ability to facilitate a TA contraction due to stretch weakness with PT-OP-Q Treatments Start: 06/24/24 16:38 Freq: Status: Active Protocol: Document 07/08/24 13:01 [facility] (Rec: 07/08/24 14:04 [facility] [id number]) Manual Therapy Treatment Soft Tissue Mobilization lumbar and gluteal release Body Location prone over the pillow, STM for lumbar parapsinals and gluteals Body Position prone over pillow Comments Ele was placed prone over the pillow for STM today and she tolerated this very well. She was very tight in the piriformis B and gluteal attachments to the sacrum She was shown how to use miracle balls to do self release following Manual Techniques prone piriformis stretch Comments worked on piriformis stretch in prone to release B quad stretch Comments while prone over the pillow manual quad stretch B, pt tolerated this well PT-OP-T Assessment and Plan Start: 06/24/24 16:38 Freq: Status: Active Protocol: Document 07/08/24 13:01 [facility] (Rec: 07/08/24 14:04 [facility] [id number]) Physical Therapy Assessment Goals 3 Impairment Increased lumbar lordosis and increased iliopsoas tightness more so on the left side Short Term Goal (STG) Ele is educated in exercises to work on reducing the increased lordosis and improving length of the iliopsoas to decrease strain to the low back STG Duration 4 weeks 2 Impairment Ele lacks a home program of exercises and stretches she can do for the remaining of her and post Bonding Molder Goal (LTG) Ele is independent with a HEP LTG Duration 8 weeks 1 Impairment thoracic and lumbar pain that is increasing with limiting Ele's ability to perform ADL's. Ele reports her pain as 6.5/10 Bonding Molder Goal (LTG) Ele reports pain levels are decreased and she is able to continue with household activities for her last trimester taking breaks when needed. LTG Duration 8 weeks Assessment Summary Assessment Ele did really well today with MFR and STM for the lumbar paraspinals and gluteals. She is very guarded and tight in the piriformis B. She was shown how to use miracle balls for self release at home. We also discussed walking in the pool to help reduce low back discomfort Physical Therapy Plan Frequency and Duration Frequency of Treatment 1x/Week Duration of treatment (weeks) 8 Plan of Care Start Date 06/29/24 Plan of Care End Date 08/24/24 Therapeutic Interventions Therapeutic Interventions Home Exercise Program,Manual Therapy,Neuromuscular Re- education,Patient/Caregiver Education,Self-Care/Home Management,Soft Tissue Mobilization,Therapeutic Exercises Next Visit Focus/Plan Next Note Type Treatment Note Next Visit Plan check in with how Ele did with manual work, review stretches if she is able to do them and continue with manual therapy techniques to reduce gluteal tightness
--- NOTE | 2024-07-15 16:37 | PT.OTN ---
Current Diagnoses Lordosis, unspecified, lumbar region (07/15/24) Sacroiliitis, not elsewhere classified (07/15/24) Low back pain, unspecified (07/15/24) Muscle weakness (generalized) (07/15/24) Pelvic and perineal pain (07/15/24) Physical Therapy Treatment Note PT-OP-A Visit Information Start: 06/24/24 16:38 Freq: Status: Active Protocol: Document 07/15/24 16:25 [facility] (Rec: 07/15/24 16:36 [facility] [id number]) Out-Patient Physical Therapy Visit Information Visit Information Visit Type Treatment Note Visit Start Time 14:35 Visit Stop Time 15:15 Visit Number 3 PT-OP-B Current Condition Start: 06/24/24 16:38 Freq: Status: Active Protocol: Document 06/29/24 09:04 [facility] (Rec: 06/29/24 10:21 [facility] [id number]) Current Condition History of Current Condition Onset Date increased back pain with Current Complaints back pain from her neck to the sacrum with scoliosis and History of Current Condition Ele is a 33 year old female with a history of scoliosis who is 25 1/2 weeks with back pain that is rated 6 .5/10 depending on the day. She has a history of disc issues and back pain on and off since she was a teenager. She notes her right side from her rib cage to her pelvis feels compressed, she is experiencing bad leg craps, and she notes baby is super low and she feels downward pressure. Treatment Goals Patient/Caregiver Goals Ele's goals are to help with decreasing pain with Current Functional Impairments (Reported) Functional Limitations- ADL's pt is noting it is becomming more difficult to compete ADL' s as she progresses in her PT-OP-C Subjective Start: 06/24/24 16:38 Freq: Status: Active Protocol: Document 07/15/24 16:25 [facility] (Rec: 07/15/24 16:36 [facility] [id number]) OP-PT Subjective Patient Comments Patient Comments Ele notes she was able to get a ball and has been sitting on it and trying pelvic tilts. She notes she did not sleep well last night and is very tired and sore today in her low back PT-OP-F Manual Assessment Start: 06/24/24 16:38 Freq: Status: Active Protocol: Document 06/29/24 09:04 [facility] (Rec: 06/29/24 10:21 [facility] [id number]) Manual Assessments Soft Tissue Assessment Soft Tissue Mobility Assessment shifts weight to the left left iliopsoas tight and guarded Joint Mobility Assessment Joint Mobility Assessment sidebending laterally bothers her cat on right side PT-OP-J Posture/Palpation/Skin Start: 06/24/24 16:38 Freq: Status: Active Protocol: Document 06/29/24 09:04 [facility] (Rec: 06/29/24 10:21 [facility] [id number]) Posture Evaluation Position Standing Evaluation View Lateral L-Spine Posture Increased Lordosis,Flexible Scoliosis on (L),Shifted Left Comments Posture Comments increased extension thoracolumbar junction, increased lordosis with iliopsoas tightness L>R PT-OP-K Range of Motion Start: 06/29/24 10:25 Freq: Status: Active Protocol: Document 06/29/24 09:00 [facility] (Rec: 06/29/24 10:27 [facility] [id number]) Lumbar Spine Range of Motion Lumbar Spine Active Lateral Flexion Left 15 Lateral Flexion Right 10 ROM Limitations Soft Tissue Tightness,Pain Comments Ele presents with increased lumbar lordosis and working in quadruped she has limited lumbar flexion, thoracic extension is irritating to her back, decreased sidebending B and this causes pain but it is greater on the right side Hip Goniometric Range of Motion Hip Left Hip ROM WFL No Testing Position Supine Comments decreased iliopsoas length L>R + ena test on the left with increased lumbar lordosis . Hip ROM Limitations Hip ROM Limitations Soft Tissue Tightness Comments iliopsoas tightness and guarding L >R PT-OP-M Strength Start: 06/29/24 10:25 Freq: Status: Active Protocol: Document 06/29/24 09:00 [facility] (Rec: 06/29/24 10:27 [facility] [id number]) Trunk Strength Trunk Manual Muscle Testing Testing Position Supine Core Stabilization decreased ability to facilitate a TA contraction due to stretch weakness with PT-OP-Q Treatments Start: 06/24/24 16:38 Freq: Status: Active Protocol: Document 07/15/24 16:25 [facility] (Rec: 07/15/24 16:36 [facility] [id number]) Therapeutic Exercises Other Exercises seated iliopsoas stretch Other Exercise Name Ele to try this sitting on her ball at home Manual Therapy Treatment Soft Tissue Mobilization quadatus lumborum Body Location left quadratus lumborum Mobilization Type Myofascial Release Intensity/Depth Moderate Body Position prone over pillow Comments MFR over the left quadratus lumborum lumbar and gluteal release Body Location prone over the pillow, STM for lumbar parapsinals and gluteals Mobilization Type Myofascial Release Body Position prone over pillow Comments Ele was placed prone over the pillow for STM today and she tolerated this very well. She was very tight in the piriformis B and gluteal attachments to the sacrum She was shown how to use miracle balls to do self release following Manual Techniques prone piriformis stretch Comments worked on piriformis stretch in prone to release B quad stretch Comments while prone over the pillow manual quad stretch B, pt tolerated this well PT-OP-T Assessment and Plan Start: 06/24/24 16:38 Freq: Status: Active Protocol: Document 07/15/24 16:25 [facility] (Rec: 07/15/24 16:36 [facility] [id number]) Physical Therapy Assessment Assessment Summary Assessment Ele is very guarded and tight L>R piriformis/gluteals and QL region. She notes good relief with MFR techniques. She did get a ball for home and we discused both sidebending stretches and seated iliopsoas stretch on the ball Physical Therapy Plan Frequency and Duration Frequency of Treatment 1x/Week Duration of treatment (weeks) 8 Plan of Care Start Date 06/29/24 Plan of Care End Date 08/24/24 Therapeutic Interventions Therapeutic Interventions Home Exercise Program,Manual Therapy,Neuromuscular Re- education,Patient/Caregiver Education,Self-Care/Home Management,Soft Tissue Mobilization,Therapeutic Exercises Next Visit Focus/Plan Next Note Type Treatment Note Next Visit Plan trial of stretches over the ball and continue with manual therapy techniques to decrease complaints of LBP and tightness
--- NOTE | 2024-07-22 16:24 | PT.OTN ---
Current Diagnoses Lordosis, unspecified, lumbar region (07/22/24) Sacroiliitis, not elsewhere classified (07/22/24) Low back pain, unspecified (07/22/24) Muscle weakness (generalized) (07/22/24) Pelvic and perineal pain (07/22/24) Physical Therapy Treatment Note PT-OP-A Visit Information Start: 06/24/24 16:38 Freq: Status: Active Protocol: Document 07/22/24 14:35 [facility] (Rec: 07/22/24 15:15 [facility] [id number]) Out-Patient Physical Therapy Visit Information Visit Information Visit Type Treatment Note Visit Start Time 14:35 Visit Stop Time 15:15 Visit Number 4 PT-OP-B Current Condition Start: 06/24/24 16:38 Freq: Status: Active Protocol: Document 06/29/24 09:04 [facility] (Rec: 06/29/24 10:21 [facility] [id number]) Current Condition History of Current Condition Onset Date increased back pain with Current Complaints back pain from her neck to the sacrum with scoliosis and History of Current Condition Ele is a 33 year old female with a history of scoliosis who is 25 1/2 weeks with back pain that is rated 6 .5/10 depending on the day. She has a history of disc issues and back pain on and off since she was a teenager. She notes her right side from her rib cage to her pelvis feels compressed, she is experiencing bad leg craps, and she notes baby is super low and she feels downward pressure. Treatment Goals Patient/Caregiver Goals Ele's goals are to help with decreasing pain with Current Functional Impairments (Reported) Functional Limitations- ADL's pt is noting it is becomming more difficult to compete ADL' s as she progresses in her PT-OP-C Subjective Start: 06/24/24 16:38 Freq: Status: Active Protocol: Document 07/22/24 14:35 [facility] (Rec: 07/22/24 15:15 [facility] [id number]) OP-PT Subjective Patient Comments Patient Comments pt nots she slipped on her stairs and caught herself but did hit a little on her tailbone. She has a mirgrane today SHe has been sitting on her ball and she does feel this is helpful PT-OP-F Manual Assessment Start: 06/24/24 16:38 Freq: Status: Active Protocol: Document 06/29/24 09:04 [facility] (Rec: 06/29/24 10:21 [facility] [id number]) Manual Assessments Soft Tissue Assessment Soft Tissue Mobility Assessment shifts weight to the left left iliopsoas tight and guarded Joint Mobility Assessment Joint Mobility Assessment sidebending laterally bothers her cat on right side PT-OP-J Posture/Palpation/Skin Start: 06/24/24 16:38 Freq: Status: Active Protocol: Document 06/29/24 09:04 [facility] (Rec: 06/29/24 10:21 [facility] [id number]) Posture Evaluation Position Standing Evaluation View Lateral L-Spine Posture Increased Lordosis,Flexible Scoliosis on (L),Shifted Left Comments Posture Comments increased extension thoracolumbar junction, increased lordosis with iliopsoas tightness L>R PT-OP-K Range of Motion Start: 06/29/24 10:25 Freq: Status: Active Protocol: Document 06/29/24 09:00 [facility] (Rec: 06/29/24 10:27 [facility] [id number]) Lumbar Spine Range of Motion Lumbar Spine Active Lateral Flexion Left 15 Lateral Flexion Right 10 ROM Limitations Soft Tissue Tightness,Pain Comments Ele presents with increased lumbar lordosis and working in quadruped she has limited lumbar flexion, thoracic extension is irritating to her back, decreased sidebending B and this causes pain but it is greater on the right side Hip Goniometric Range of Motion Hip Left Hip ROM WFL No Testing Position Supine Comments decreased iliopsoas length L>R + ena test on the left with increased lumbar lordosis . Hip ROM Limitations Hip ROM Limitations Soft Tissue Tightness Comments iliopsoas tightness and guarding L >R PT-OP-M Strength Start: 06/29/24 10:25 Freq: Status: Active Protocol: Document 06/29/24 09:00 [facility] (Rec: 06/29/24 10:27 [facility] [id number]) Trunk Strength Trunk Manual Muscle Testing Testing Position Supine Core Stabilization decreased ability to facilitate a TA contraction due to stretch weakness with PT-OP-Q Treatments Start: 06/24/24 16:38 Freq: Status: Active Protocol: Document 07/22/24 15:19 [facility] (Rec: 07/22/24 16:23 [facility] [id number]) Therapeutic Exercises Standing Exercises door way chest stretch Reps/Minutes 2 reps 30 sec hold Manual Therapy Treatment Soft Tissue Mobilization thoracic paraspinal release Mobilization Type Myofascial Release Intensity/Depth Moderate Body Position Prone Comments prone over the body pillow quadatus lumborum Body Location left quadratus lumborum Mobilization Type Myofascial Release Intensity/Depth Moderate Body Position prone over pillow Comments MFR over the left quadratus lumborum lumbar and gluteal release Body Location prone over the pillow, STM for lumbar parapsinals and gluteals Mobilization Type Myofascial Release Body Position prone over pillow Comments Ele was placed prone over the pillow for STM today and she tolerated this very well. She was very tight in the piriformis B and gluteal attachments to the sacrum She was shown how to use miracle balls to do self release following Manual Techniques prone piriformis stretch Comments worked on piriformis stretch in prone to release B quad stretch Comments while prone over the pillow manual quad stretch B, pt tolerated this well PT-OP-T Assessment and Plan Start: 06/24/24 16:38 Freq: Status: Active Protocol: Document 07/22/24 15:19 [facility] (Rec: 07/22/24 16:23 [facility] [id number]) Physical Therapy Assessment Assessment Summary Assessment Ele is still guarded in her QL's but does feel she gets some relief with PT. She came in with a migraine today and notes she did feel better after treatment. I added in a doorway chest stretch for her . She is using her ball at home to sit on and feels this is helpful as well. She is at 28 weeks this week Physical Therapy Plan Frequency and Duration Frequency of Treatment 1x/Week Duration of treatment (weeks) 8 Plan of Care Start Date 06/29/24 Plan of Care End Date 08/24/24 Therapeutic Interventions Therapeutic Interventions Home Exercise Program,Manual Therapy,Neuromuscular Re- education,Patient/Caregiver Education,Self-Care/Home Management,Soft Tissue Mobilization,Therapeutic Exercises Next Visit Focus/Plan Next Note Type Treatment Note Next Visit Plan continue with MFR techniques to help reduce tension in the thoracic and lumbar spine and hips
--- NOTE | 2025-05-10 17:00 | PT.OPDS ---
Current Diagnoses Lordosis, unspecified, lumbar region (07/22/24) Sacroiliitis, not elsewhere classified (07/22/24) Low back pain, unspecified (07/22/24) Muscle weakness (generalized) (07/22/24) Pelvic and perineal pain (07/22/24) Visit Care Team Role Provider Type Roosevelt Eugene MD Family Provider Physician Primary Care Provider Specialty: Family Practice Obstetrics Address: [address] [place] [address], [id number] Email: [email or web address] Aisha Tello CNM, DOMINIQUE Attending Provider Advanced Wire Turning Machine Operator Referring Provider Specialty: BUSINESS ACCOUNT MANAGER Address: [address] [place] [address], [place], [address] Email: [email or web address] Visit Number Visit Number 4 Discharge Summary PT-OP-A Visit Information Start: 06/24/24 16:38 Freq: Status: Active Protocol: Document 07/22/24 14:35 [facility] (Rec: 07/22/24 15:15 [facility] [id number]) Out-Patient Physical Therapy Visit Information Visit Information Visit Type Treatment Note Visit Start Time 14:35 Visit Stop Time 15:15 Visit Number 4 PT-OP-B Current Condition Start: 06/24/24 16:38 Freq: Status: Active Protocol: Document 06/29/24 09:04 [facility] (Rec: 06/29/24 10:21 [facility] [id number]) Current Condition History of Current Condition Onset Date increased back pain with Current Complaints back pain from her neck to the sacrum with scoliosis and History of Current Ele is a 33 year old female with a history of Condition scoliosis who is 25 1/2 weeks with back pain that is rated 6.5/10 depending on the day. She has a history of disc issues and back pain on and off since she was a teenager. She notes her right side from her rib cage to her pelvis feels compressed, she is experiencing bad leg craps, and she notes baby is super low and she feels downward pressure. Treatment Goals Patient/Caregiver Ele's goals are to help with decreasing pain with Goals Current Functional Impairments (Reported) Functional pt is noting it is becomming more difficult to compete Limitations- ADL's ADL's as she progresses in her PT-OP-C Subjective Start: 06/24/24 16:38 Freq: Status: Active Protocol: Document 07/22/24 14:35 [facility] (Rec: 07/22/24 15:15 [facility] [id number]) OP-PT Subjective Patient Comments Patient Comments pt nots she slipped on her stairs and caught herself but did hit a little on her tailbone. She has a mirgrane today SHe has been sitting on her ball and she does feel this is helpful PT-OP-F Manual Assessment Start: 06/24/24 16:38 Freq: Status: Active Protocol: Document 06/29/24 09:04 [facility] (Rec: 06/29/24 10:21 [facility] [id number]) Manual Assessments Soft Tissue Assessment Soft Tissue Mobility shifts weight to the left Assessment left iliopsoas tight and guarded Joint Mobility Assessment Joint Mobility sidebending laterally bothers her cat on right side Assessment PT-OP-J Posture/Palpation/Skin Start: 06/24/24 16:38 Freq: Status: Active Protocol: Document 06/29/24 09:04 [facility] (Rec: 06/29/24 10:21 [facility] [id number]) Posture Evaluation Position Standing Evaluation View Lateral L-Spine Posture Increased Lordosis,Flexible Scoliosis on (L),Shifted Left Comments Posture Comments increased extension thoracolumbar junction, increased lordosis with iliopsoas tightness L>R PT-OP-K Range of Motion Start: 06/29/24 10:25 Freq: Status: Active Protocol: Document 06/29/24 09:00 [facility] (Rec: 06/29/24 10:27 [facility] [id number]) Lumbar Spine Range of Motion Lumbar Spine Active Lateral Flexion Left 15 Lateral Flexion 10 Right ROM Limitations Soft Tissue Tightness,Pain Comments Ele presents with increased lumbar lordosis and working in quadruped she has limited lumbar flexion, thoracic extension is irritating to her back, decreased sidebending B and this causes pain but it is greater on the right side Hip Goniometric Range of Motion Hip Left Hip ROM WFL No Testing Position Supine Comments decreased iliopsoas length L>R + ena test on the left with increased lumbar lordosis. Hip ROM Limitations Hip ROM Limitations Soft Tissue Tightness Comments iliopsoas tightness and guarding L >R PT-OP-M Strength Start: 06/29/24 10:25 Freq: Status: Active Protocol: Document 06/29/24 09:00 [facility] (Rec: 06/29/24 10:27 [facility] [id number]) Trunk Strength Trunk Manual Muscle Testing Testing Position Supine Core Stabilization decreased ability to facilitate a TA contraction due to stretch weakness with PT-OP-T Assessment and Plan Start: 06/24/24 16:38 Freq: Status: Active Protocol: Document 05/10/25 17:00 [facility] (Rec: 05/10/25 17:00 [facility] [id number]) Physical Therapy Assessment Goals 3 Impairment Increased lumbar lordosis and increased iliopsoas tightness more so on the left side Short Term Goal (STG Ele is educated in exercises to work on reducing the ) increased lordosis and improving length of the iliopsoas to decrease strain to the low back STG Duration 4 weeks 2 Impairment Ele lacks a home program of exercises and stretches she can do for the remaining of her and post Energy Efficiency Specialist Goal (LTG) Ele is independent with a HEP LTG Duration 8 weeks 1 Impairment thoracic and lumbar pain that is increasing with limiting Ele's ability to perform ADL's. Ele reports her pain as 6.5/10 Energy Efficiency Specialist Goal (LTG) Ele reports pain levels are decreased and she is able to continue with household activities for her last trimester taking breaks when needed. LTG Duration 8 weeks Physical Therapy Plan Next Visit Focus/Plan Next Note Type Discharge Summary Next Visit Plan pt is no longer attending PT
== END 2025-05-17 09:38 | disposition home or self-care (01) ==
LOC: PHYS 14:30
PROVIDERS: Family Provider Family Medicine; PCP Family Medicine; Referring Provider Advanced Practice Midwife; Visit Provider Advanced Practice Midwife
DX: R10.2 Pelvic and perineal pain (principal); M54.50 Low back pain, unspecified; M46.1 Sacroiliitis, not elsewhere classified; M62.81 Muscle weakness (generalized); M40.56 Lordosis, unspecified, lumbar region
CPT/HCPCS: 97110; 97140; 97161

== ENCOUNTER → 2024-08-06 20:58 | Outpatient (ROUT) | payer OTHER, SELFPAY ==
[2024-08-06 21:54] LABS: Add Manual Diff / Slide Review NO; Basophils Absolute Auto 0 /uL (0-100); Basophils Percent Auto 0.5 % (0-2); Eosinophils Absolute Auto 100 /uL (0-450); Hematocrit 36.8 % (36-46); Hemoglobin 12.5 g/dL (12.0-16.0); Lymphocytes Absolute Auto 1200 /uL (1100-4500); Lymphocytes Percent Auto 14.9 % (25-40); Mean Corpuscular HGB Conc 34.1 % (30-36); Mean Corpuscular Hemoglobin 31.2 PG (26-34); Mean Corpuscular Volume 91.5 fL (80-100); Monocytes Absolute Auto 400 /uL (0-900); Monocytes Percent Auto 4.8 % (3-14); Neutrophils Absolute Auto 6300 /uL (1500-7000); Neutrophils Percent Auto 78.8 % (50-75); Platelet Count 184 X10^3/uL (150-400); Red Blood Cell Count 4.02 X10^6/uL (4.0-5.2); Red Cell Distribution Width 12.5 % (11.6-14.8)
[2024-08-06 22:02] LABS: Protein (Total) Urine Random 7 mg/dL (0-12); Protein Creatinine Ratio Urine 0.07 GRAM/24H
[2024-08-06 22:11] LABS: Alanine Aminotransferase 21 IU/L (<35); Albumin 3.5 g/dL (3.5-5.0); Albumin Globulin Ratio 1.3 (1.0-2.8); Alkaline Phosphatase 112 U/L (38-126); Aspartate Aminotransferase 24 IU/L (14-36); Bilirubin Total 0.4 mg/dL (0.2-1.3); Bilirubin Unconjugated 0.1 mg/dL (0.0-1.1); Globulin 2.8 g/dL (1.7-4.1); HEMOLYSIS < 15 (0-50); Total Protein 6.3 g/dL (6.3-8.2); Uric Acid 3.9 mg/dL (2.5-6.2)
== END ==
LOC: LAB 20:58
PROVIDERS: Family Provider Family Medicine; PCP Family Medicine; Visit Provider Advanced Practice Midwife
DX: O13.9 Gestational [pregnancy-induced] hypertension without significant proteinuria, unspecified trimester (principal)
CPT/HCPCS: 80076; 82570; 84156; 84550; 85025

== ENCOUNTER → 2024-08-11 15:30 | Outpatient (CLI) | payer OTHER, SELFPAY ==
--- NOTE | 2024-08-11 15:32 | DI.US.S_ITS ---
PROCEDURE: US OB FOLLOW UP INDICATIONS: GROWTH AND PLACENTA F/U OUTSIDE/PRIOR DATING DATA: Working SAROJ is 10/12/2024 TECHNIQUE: Real-time scanning was performed of the fetus, with image documentation and biometric measurements. COMPARISON: [facility], , OB >= 14 WEEKS FETUS, 05/27/2024, 14:16. FINDINGS: General: A single living intrauterine gestation is present. Presentation: Vertex. Placenta: Placental position is anterior , without previa. Amniotic fluid index: 23 cm, normal range is 5-24 cm. heart rate: 131 beats per minute. biometrics: Biparietal diameter: 7.9 cm, 31 weeks and 5 days Head circumference: 29.3 cm, 32 weeks and 3 days Abdominal circumference: 29 cm, 33 weeks Femur length: 6 cm, 31 weeks and 1 day Clinically estimated gestational age: 31 weeks and 1 day Composite gestational age from present scan: 32 weeks and 1 day Estimated weight and percentile: 1942 g, 76% Other: Not applicable. IMPRESSION: No evidence of placenta previa. Vertex presentation. EFW within normal limits, 76 percentile. Dictated by: Luan Vasquez M.D. on 08/11/2024 at 17:19 Approved by: Luan Vasquez M.D. on 08/11/2024 at 17:21
== END ==
LOC: US 15:31
PROVIDERS: PCP Family Medicine; Referring Provider Advanced Practice Midwife; Visit Provider Advanced Practice Midwife
DX: O44.03 Complete placenta previa NOS or without hemorrhage, third trimester (principal); Z3A.32 32 weeks gestation of pregnancy
CPT/HCPCS: 76816; 76817

== ENCOUNTER 2024-09-20 21:54 | Outpatient (CLI) | payer OTHER, SELFPAY ==
--- NOTE | 2024-09-20 22:08 | PM.OBTRLD ---
Visit Information Visit Information Date of evaluation: 09/20/24 Primary OB Provider: Aisha Tello On-call OB Provider: Aisha Tello Reason for Evaluation: Yes non-stress test [facility] Medical History (Updated 05/01/24 @ 00:00 by ) in first trimester with history of Tachycardia Hypomania PTSD (post-traumatic stress disorder) Strep sore throat Acute pharyngitis due to other specified organisms Contraception management Insomnia Migraine Neck pain Surgical History No pertinent past surgical history Family History Mother Skin cancer Grandmother Skin cancer Father Bipolar 2 disorder Family/Other PTSD (post-traumatic stress disorder) Grandfather Schizophrenia Psychosis Brother Depression Family/Other Borderline personality disorder Social History marital status: unmarried,living together details: Partner and patient happy about number of children: 0 household members: significant other lives independently: Yes caregiver/support person: No housing: condominium pets and animals: Yes (1 cat; aware of toxo precautions ) education level: college occupational status: employed and student current occupational exposures/hazards: Yes (aware of precautions) special michelle needs: No seatbelt use: always water heater temp set < 120 deg: Yes working smoke detector in home: Yes fire extinguisher in home: Yes carbon monox detector in home: Yes firearms in home: No do you feel safe at home: Yes second hand exposure: No alcohol intake: former substance use type: does not use during the past year weight has: other well-balanced diet: daily or most days daily servings fruits/ve or more times/day caffeine: Yes (1-2 cups coffee/week) Type(s) of exercise: walking and other frequency: daily additional social history: all members of her immediate family have PTSD. Partner's family is supportive of Patient today primarily wanting treatment for anxiety and depression. Psychiatric practitioner has taken her off her previous meds due to
--- NOTE | 2024-09-20 22:33 | PM.PROC.1 ---
Procedures Date/Time Date of procedure: 09/20/24 Time of procedure: 22:30 General Procedure description: Ele is here for NST and rand catheter insertion due to need to delay initiation of IOL due to low staffing. She is a 34 week at 36w6d with gestational hypertension. BP: 132/90 NST: Baseline: 125 Variability: moderate Accelerations: present Decelerations: none Impression: Reactive NST Procedure: Balloon catheter placed to begin cervical ripening: Speculum placed in vagina. Balloon catheter inserted through cervix into uterus with ring forceps and then filled to 40 mL. End clamped with clamp. Plan: Discharge home. RTC in AM to continue induction of labor.
[2024-09-20] MEDS: MORPHINE 10 MG/ML INJ 15 MG IM (22:42)
[2024-09-20] MEDS: ZOLPIDEM 5 MG TABLET 10 MG PO (22:43)
--- NOTE | 2024-09-20 23:06 | PC.NURSE ---
Addendum entered by Magdalena Herrera R.N. 09/20/24 23:09: Procedure was done at 2220. Original Note: Chiara Russ, student CNM placed rand balloon in patient. Cervix was closed/40%/high. Patient tolerated procedure well. Medicated prior to discharge. Will return for scheduled induction at 0730 on 09/21/2024.
== END 2024-09-20 22:50 | disposition home or self-care (01) ==
LOC: OB 09-21 15:23
PROVIDERS: Family Provider Family Medicine; PCP Family Medicine; Referring Provider Advanced Practice Midwife; Visit Provider Advanced Practice Midwife
DX: O13.3 Gestational [pregnancy-induced] hypertension without significant proteinuria, third trimester (principal); Z3A.34 34 weeks gestation of pregnancy
CPT/HCPCS: 59025; 96372; G0378; G0379; J2270

== ENCOUNTER 2024-09-21 07:58 | Inpatient (IN) | payer OTHER, SELFPAY ==
[2024-09-21] MEDS: miSOPROStoL 25 MCG TABLET 50 MCG PO ×2 (09:01→16:25)
[2024-09-21 09:03] LABS: Add Manual Diff / Slide Review NO; Basophils Absolute Auto 0 /uL (0-100); Basophils Percent Auto 0.5 % (0-2); Eosinophils Absolute Auto 200 /uL (0-450); Eosinophils Percent Auto 1.7 % (2-4); Hematocrit 36.5 % (36-46); Hemoglobin 12.3 g/dL (12.0-16.0); Lymphocytes Absolute Auto 1800 /uL (1100-4500); Lymphocytes Percent Auto 19.8 % (25-40); Mean Corpuscular HGB Conc 33.8 % (30-36); Mean Corpuscular Hemoglobin 30.3 PG (26-34); Mean Corpuscular Volume 89.6 fL (80-100); Monocytes Absolute Auto 500 /uL (0-900); Monocytes Percent Auto 5.5 % (3-14); Neutrophils Absolute Auto 6500 /uL (1500-7000); Neutrophils Percent Auto 72.5 % (50-75); Platelet Count 199 X10^3/uL (150-400); Red Blood Cell Count 4.07 X10^6/uL (4.0-5.2); Red Cell Distribution Width 12.9 % (11.6-14.8); White Blood Cell Count 8.9 X10^3/uL (4.5-11.0)
--- NOTE | 2024-09-21 09:57 | P.HPOB_ITS ---
OB HPI Date/Time Date of admission: 09/21/24 Date Patient Seen: 09/21/24 Time Patient Seen: 09:45 History of Present Condition Chief complaint: INDUCTION : 3 Para: 0 Estimated Date of Delivery: 10/12/24 Estimated Gestational Age (weeks): 37w Narrative: Ele Adams is a 34 year old female at 37w by sure LMP concordant with early ultrasound. Rand balloon placed yesterday evening approximately 2200, she was sent home to return this am for scheduled IOL. Slept well with 15 mg morphine IM and 10 mg zolpidem PO prior to triage discharge. Mild irregular contractions overnight, rand balloon still in place on arrival. No LOF or vaginal bleeding. Having good movement. She is accompanied by her Todd, they are eager to meet their son. No questions or concerns on arrival. Ele is hoping to remain comfortable during labor and consents to using any options available including nitrous oxide, fentanyl, epidural anesthesia. Indications Indication for induction OB: gestational HTN/pre-eclampsia (GHTN on labetalol) History of Present care: good care, initiated at week # (8), number of visits (19) and pounds weight gain (54lbs) Dating criteria: LMP confirmed by 1st trimester US Ultrasounds: other (weekly [place] since 29weeks, also seen by MFM ) Obstetrical complications: gestational hypertension Medical complications: psychiatric (bipolar disorder, PTSD, anxiety) and musculoskeletal (scoliosus) Preadmission Labs Blood type: B (+) positive -: Antibody screen: negative, Cystic fibrosis screen: negative, GBS status: negative, HBsAG: negative, HIV: negative, HSV 1: negative, HSV 2: negative and RPR/VDLR: negative -: Chlamydia screen: not detected and Gonorrhea screen: not detected -: Rubella: immune and Varicella: immune HCT: 36 HCAB: negative PAP: Normal Cell-free DNA: Negative x3 Carrier screening negative for CF, SMA, or fragile X MSAFP negative 1 hr GTT: 115 Prior (ies) Hx # Term Pregnancies: 0 Hx # Pregnancies: 0 Number of Living Children: 0 Multiple births: 0 Spontaneous abortions: 2 Ectopic pregnancies: 0 Elective abortions: 0 Evaluation Evaluation Baseline heart rate: 125 Variability: Moderate (11-25) monitor accelerations: Present Monitor Decelerations: Absent Contraction Frequency (minutes): 9 (9-11) Uterine Contraction Intensity: Mild Status: Category l Comments: Rand balloon in place. CE not assessed. CE on placement 09/20/24 evening 1cm, thick, posterior PFSH Medical History (Updated 09/21/24 @ 15:10 by Aisha Tello CNM, DOMINIQUE) Tachycardia Hypomania PTSD (post-traumatic stress disorder) Strep sore throat Acute pharyngitis due to other specified organisms Contraception management Insomnia Migraine Neck pain Surgical History No pertinent past surgical history Family History (Updated 09/21/24 @ 15:01 by Aisha Tello CNM, DOMINIQUE) Mother Skin cancer Grandmother Skin cancer Father Bipolar 2 disorder Family/Other PTSD (post-traumatic stress disorder) Grandfather Schizophrenia Psychosis Brother Depression Family/Other Borderline personality disorder Social History (Updated 09/21/24 @ 15:12 by Aisha Tello CNM, DOMINIQUE) marital status: details: Partner and patient happy about number of children: 0 household members: spouse and significant other lives independently: Yes caregiver/support person: No housing: condominium pets and animals: Yes (1 cat; aware of toxo precautions ) education level: college occupational status: employed and student current occupational exposures/hazards: Yes (aware of precautions) special michelle needs: No seatbelt use: always water heater temp set < 120 deg: Yes working smoke detector in home: Yes fire extinguisher in home: Yes carbon monox detector in home: Yes firearms in home: No do you feel safe at home: Yes second hand exposure: No alcohol intake: former substance use type: does not use during the past year weight has: other well-balanced diet: daily or most days daily servings fruits/ve or more times/day caffeine: Yes (1-2 cups coffee/week) Type(s) of exercise: walking and other frequency: daily additional social history: all members of her immediate family have PTSD. Partner's family is supportive of Patient today primarily wanting treatment for anxiety and depression. Psychiatric practitioner has taken her off her previous meds due to Meds Home Medications and Allergies Home Medications Medication Instructions Recorded Confirmed Type Lactobacillus rhamnosus GG 10 1 cap PO DAILY #30 caps 03/27/22 09/21/24 Rx billion cell capsule (Culturelle) Vistaril 50 mg capsule 50 mg PO BID PRN anxiety #60 caps 06/11/22 09/21/24 Rx (hydroxyzine pamoate) Zoloft 50 mg tablet (sertraline) 50 mg PO DAILY 30 days #30 tabs 06/11/22 09/21/24 Rx propranolol 20 mg tablet See Rx Instructions .Route 07/02/22 09/21/24 Rx .COMPLEX #90 tabs quetiapine 200 mg tablet See Rx Instructions .Route 07/02/22 09/21/24 Rx .COMPLEX #30 tabs mupirocin 2 % topical ointment 1 applic topical TID #22 grams 12/11/23 09/21/24 Rx sulfamethoxazole 800 1 tab PO BID #42 tabs 12/11/23 09/21/24 Rx mg-trimethoprim 160 mg tablet (Bactrim DS) Allergies Allergy/AdvReac Type Severity Reaction Status Date / Time No Known Drug Allergies Allergy Verified 09/20/24 23:05 Review of Systems Review of Systems ROS: Yes All systems reviewed with the patient and are negative except as otherwise documented Musculoskeletal Musculoskeletal: Reports back pain (chronic ) OB Exam Vital signs Blood Pressure: 136/86 Pulse Rate: 86 Respiratory Rate: 16 Temperature: 36.0 F HENMT Head: normal to inspection and normocephalic Eyes General: appearance normal, both eyes and all related structures Resp Effort & Inspection: normal respiratory effort Auscultation: clear to auscultation bilaterally Cardio Rate: regular rate Rhythm: regular rhythm Heart Sounds: S1 normal and S2 normal Extremities Lower extremity: Yes normal to inspection GI Inspection: normal to inspection Palpation: Yes soft Auscultation: normal bowel sounds Estimated Weight (lbs): 7 (EFW 09/16/24 was 3200g) Other: Deferred Objective Labs 09/21/24 08:20 09/21/24 10:15 Labs: Laboratory Results - last 24 hr 09/21/24 08:20 WBC 8.9 RBC 4.07 Hgb 12.3 Hct 36.5 MCV 89.6 MCH 30.3 MCHC 33.8 RDW 12.9 Plt Count 199 Neut % (Auto) 72.5 Lymph % (Auto) 19.8 L [place] % (Auto) 5.5 Eos % (Auto) 1.7 L Baso % (Auto) 0.5 Neut # (Auto) 6500 Lymph # (Auto) 1800 [place] # (Auto) 500 Eos # (Auto) 200 Baso # (Auto) 0 Blood Type B Positive Antibody Screen Negative Assessment and Plan Assessment and Plan Assessment and Plan narrative: Assessment: at 37weeks IOL for GHTN Scoliosis Depression, anxiety and PTSD Cat 1 FHR tracing Rand balloon in place GBS pos, antibiotics indicated Plan: PET panel ordered Misoprostol 50mcg orally Q4 per protocol, rand balloon to stay in 24 hours Discussed risks/benefits/alternates to methods of IOL and pain management options. Anesthesia to see patient early to evaluate spine for possible early placement of epidural due to severe scoliosis Encourage rest, hydration, and ambulation Reassess in 4 hours or as needed Time-Based Coding :: [TOTAL MINUTES] spent with patient and on the chart (including review of chart, obtaining history, exam, reviewing outside data, placing orders, documenting exam and treatment plan, and counseling patient) on [DATE].
[2024-09-21 10:33] LABS: Alanine Aminotransferase 22 IU/L (<35); Albumin 3.3 g/dL (3.5-5.0); Alkaline Phosphatase 166 U/L (38-126); Aspartate Aminotransferase 31 IU/L (14-36); BUN Creatinine Ratio 24.7 (6-22); Bilirubin Total 0.3 mg/dL (0.2-1.3); Blood Urea Nitrogen 21 mg/dL (7-17); Calcium 9.6 mg/dL (8.4-10.2); Carbon Dioxide 20 mmol/L (22-32); Chloride 106 mmol/L (98-107); Estimated Glomerular Filt Rate > 60 mL/min (>60); Globulin 3.2 g/dL (1.7-4.1); Glucose 91 mg/dL (70-99); HEMOLYSIS < 15 (0-50); Potassium 4.2 mmol/L (3.4-5.1); Sodium 133 mmol/L (137-145); Total Protein 6.5 g/dL (6.3-8.2)
[2024-09-21 10:35] VITALS: BP 136/86; PULSE 86; RESP 16; TEMP 2.2; TEMP 36
[2024-09-21 11:13] LABS: Creatinine Urine Random 56.34 mg/dL; Protein (Total) Urine Random 12 mg/dL (0-12); Protein Creatinine Ratio Urine 0.21 GRAM/24H
[2024-09-21] MEDS: ACETAMINOPHEN 325 MG TABLET 975 MG PO (11:24)
[2024-09-21 11:38] VITALS: BP 134/92
--- NOTE | 2024-09-21 12:44 | PM.OBPNLAB ---
Date/Time Date Patient Seen: 09/21/24 Time Patient Seen: 13:14 Pain Control Pain control: tolerating well and other (requesting nitrous oxide) Comments: Ele is doing well, starting to feel pain with contractions in the past thirty minutes. She is mostly feeling pain in her back, which is normal for her. Verdugo balloon fell out. Requesting nitrous oxide for pain. Contractions to close to dose misoprostol at this time. VS-134/92, RR 16, Pulse 91, temp 36.4C Contractions Date/Time contractions began: Painful contractions started about 1300. Contractions on admission: none Monitor mode: External Contraction frequency (min): 2 Contraction duration (min): 1 (1-2) Contraction pattern: Irregular Contraction intensity: Moderate Status status: Category l Heart Rate Baseline: 125 Monitor Accelerations: Present Monitor Decelerations: Absent Monitor Variability: Moderate Assessment and Plan Comments: Assessment: at 37weeks IOL for GHTN Scoliosis Depression, anxiety and PTSD Cat 1 FHR tracing GBS pos, antibiotics indicated Plan: Anesthesia in to see patient and evaluate back prior to placement of epidural (plans to go higher in back to avoid curve in spine) Discussed Nitrous oxide and other pain options. Encourage rest, hydration, and ambulation Reassess in 4 hours or as needed
[2024-09-21] MEDS: fentaNYL 100 MCG/2 ML INJ 50 MCG IV ×4 (14:19→18:25)
--- NOTE | 2024-09-21 15:45 | PM.OBPNLAB ---
Date/Time Date Patient Seen: 09/21/24 Time Patient Seen: 15:45 Pain Control Comments: Ele is up moving around in room, changing positions, and using the cub. She had very little relief from pain with nitrous oxide. Requested IV fentanyl for back pain. Fentanyl 50mcg given for pain, with minor pain relief. Received second fentanyl dose of 50mcg which she feels decreased her back pain. 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 She is able to talk without stopping for contractions, feeling tightening not cramping anymore. Anesthesia here to discuss pain options as she will be unavailable for an hour due to OR cases. Discussed placing epidural catheter now and waiting to start pump, not placing epidural, or placing and starting medication now which means no food and bed rest. Ele is nervous about epidural due to back issues, she would like epidural catheter placed now while comfortable with fentanyl. She would like freedom to move around and eat until pain is unmanageable. Pelvic Exam Dilation (cm): 3 Effacement (%): 50 station: -2 Amniotic membrane status: Intact Contractions Monitor mode: External Contraction frequency (min): 3 (irregular, painless) Contraction duration (min): 1 Status status: Category l Heart Rate Baseline: 125 Monitor Accelerations: Present Monitor Decelerations: Absent Monitor Variability: Moderate Assessment and Plan Assessment: induction ongoing Comments: Assessment: at 37weeks IOL for GHTN Scoliosis Depression, anxiety and PTSD Cat 1 FHR tracing GBS pos, antibiotics indicated Plan: Anesthesia present discussed epidural options. Ele consents to epidural catheter being placed now, will dose when Ele is ready for pain releif. Misoprostol 50mcg now, with plan to start pitocin in four hours if needed. Encourage rest, hydration, and ambulation Reassess in 4 hours or as needed
--- NOTE | 2024-09-21 16:26 | P.PCN_ITS ---
[facility] <Leonarda House CRNA - Last Filed: 09/21/24 22:05> Pre-procedure Procedure: Continuous Lumbar Epidural for L&D Attending OB provider: Aisha Tello PMH/ROS narrative: here for IOL for gestational hypertenstion. PMH + for scoliosis, PTSD, and ADHD. Requesting epidural catheter placement now. PSH/Anesthesia history narrative: None. Exam narrative: See pre-anesthesia evaluation form. ASA Class: II Labs: Hct 36.5 % (36-46) 09/21/24 08:20 Plt Count 199 X10^3/uL (150-400) 09/21/24 08:20 Medications: Current Medications Generic Name Dose Route Start Last Admin Trade Name Freq PRN Reason Stop Dose Admin Calcium Carbonate 1,000 mg 09/21/24 08:39 Calcium Carbonate 500 Mg Tab PO Q2HR PRN Dyspepsia Carboprost Tromethamine 250 mcg 09/21/24 08:39 Carboprost 250 Mcg/Ml Ampul IM Q90M PRN Bleeding Fentanyl 50 mcg 09/21/24 08:39 09/21/24 14:54 Fentanyl 100 Mcg/2 Ml Inj IV 50 mcg Q1H PRN Administration Pain, Moderate (4-6) Oxytocin/Lactated Ringer's 30 unit in 500 mls @ 200 mls/hr 09/21/24 08:39 Oxytocin Premix IV CONT PRN Bleeding Protocol Tranexamic Acid 1,000 mg/ 100 mls @ 600 mls/hr 09/21/24 08:39 Sodium Chloride IV NOW PRN Bleeding Lactated Ringer's 1,000 mls @ 100 mls/hr 09/21/24 08:45 Lactated Ringers IV 09/21/24 18:44 CONT MARCIO Lidocaine HCl 20 ml 09/21/24 08:39 Lidocaine 1% 20 Ml INJ INTRA-OP PRN Post Delivery Methylergonovine Maleate 0.2 mg 09/21/24 08:39 Methylergonovine 0.2 Mg Tablet PO Q6HR PRN Heavy Bleeding Methylergonovine Maleate 0.2 mg 09/21/24 08:39 Methylergonovine 0.2 Mg/Ml Vial IM NOW PRN Bleeding Mineral Oil 30 ml 09/21/24 08:39 Mineral Oil 30 Ml Udc TOP PRN PRN Version Misoprostol 800 mcg 05/06/25 08:39 Misoprostol 200 Mcg Tablet VT NOW PRN Bleeding Misoprostol 400 mcg 09/21/24 08:39 Misoprostol 200 Mcg Tablet SL NOW PRN Bleeding Naloxone HCl 0.2 mg 09/21/24 08:39 Naloxone 0.4 Mg/Ml Vial IV Q2MIN PRN Opiate Reversal Ondansetron HCl 4 mg 09/21/24 08:39 Ondansetron 4 Mg/2 Ml Inj IV Q4HR PRN Nausea And Vomiting Oxytocin 10 unit 09/21/24 08:39 Oxytocin 10 Unit/Ml Vial IM NOW PRN Bleeding Allergies: Allergies Allergy/AdvReac Type Severity Reaction Status Date / Time No Known Drug Allergies Allergy Verified 09/20/24 23:05 --: Discussed patient's anesthetic options and timeline. She would like an epidural for labor pain. She is currently using N2O with little relief mostly for her back pain. She is also receiving IV Fentanyl for pain. She would like to maintain her ability to be up and ambulatory in her room, but would like the catheter placed now in order to maximize her ability to hold still during the procedure. Advised patient I believe it would be appropriate to place the catheter now as I will have to take over an OR case at 1700 and will be tied up for approximately an hour. This way if she decides she needs the epidural it will be ready to dose as soon as I am out of the room. Discussed with the patient the risk of a patchy epidural due to her scoliosis. She has significant curvature at L2-5, so catheter would need to be placed at approximately L1/2 inter-space. Advised that if epidural is patchy at this level, replacing at a lower or higher level would not be an option. She is agreeable to the plan. Procedure Insertion date: 09/21/24 Insertion time: 15:56 Prep/Local: 1% lidocaine (3mL at L1/2 interspace. CHG for skin prep.) Interspace: L1/2 Patient position: sitting Needle: 18 gauge Arnol Loss of resistance with: saline MIKE at (cm): 6 Catheter placed at SKIN (cm): 12 Catheter in SPACE (cm): 6 Insertion: No CSF, No Blood, Yes Paresthesia with insertion, No Paresthesia with injection and No Test dose reaction Initial Medications TEST DOSE time: 15:58 TEST DOSE: 1.5% lidocaine with epinephrine 1:200k (mL): 3 BOLUS DOSE time: 21:46 BOLUS DOSE (mL): 10 BOLUS DOSE med: 0.25% bupivacaine Infusion INFUSION: 0.125% bupivacaine and with fentanyl 2 mcg/mL Initial rate (mL/hr): 8 Subsequent interventions: 2145: Pump initiated for c/o 8/10 pain. Patient states she has both 8/10 pain both in her back and when she is having contractions. Patient was having back pain prior to epidural catheter placement which she has been receiving IV fentanyl for. 2204: Pt now rating her pain 4.75/10 and feels much improved. -EVANS OSCAR Post-procedure Anesthesia date START: 09/21/24 Anesthesia time START: 15:46 <Beba Carrera DO - Last Filed: 09/23/24 08:59> Infusion Subsequent interventions: 2145: Pump initiated for c/o 8/10 pain. Patient states she has both 8/10 pain both in her back and when she is having contractions. Patient was having back pain prior to epidural catheter placement which she has been receiving IV fentanyl for. 2204: Pt now rating her pain 4.75/10 and feels much improved. -EVANS OSCAR 09/22/24 13:45 - Pt's water was broken about 5 minutes ago, and she is 4 cm. Checked on pt. She just pushed her PCEA button. She reports she is feeling everything, although not significantly uncomfortable yet, and she is moving BLE like she has no block. Increased rate from 8 to 10 ml/hr and gave clinician bolus of 6 ml. Nirav Post-procedure Anesthesia date END: 09/23/24 Anesthesia time END: 02:30 Post-procedure Anesthesia Assessment: Yes CV function: HR/BP stable, Yes Resp function: RR/sat/airway adequate, Yes Post-op hydration adequate, Yes Pain control adequate, Yes Nausea & vomiting absent, Yes Temperature > 36 C, Yes M ental status appropriate and No Anesthesia complications ( hemorrhage, but pt did not need addl anesthesia. )
[2024-09-21 17:56] VITALS: BP 135/91; PULSE 96
[2024-09-21] MEDS: LABETALOL 100 MG TABLET 200 MG PO (17:56)
--- NOTE | 2024-09-21 21:07 | PM.OBPNLAB ---
Date/Time Date Patient Seen: 09/21/24 Time Patient Seen: 21:07 Pain Control Pain control: narcotic analgesia and other (Nitrous oxide) Comments: Ele complaining about the constant pain in her back, she is worried. Feels like it is extra tender where the epidural was placed. IV Fentanyl and nitrous oxide are not working to relieve back pain. Requesting epidural now. Discussed options to start Oxytocin now or after epidural dosed. After discussing she is good with starting Pitocin now while waiting for anesthesia. Standing at bedside rocking, uncomfortable does not want to try ball or walking at this time. She was able to eat dinner and is drinking fluids. Well supported by Todd. VS: BP 128/92, HR 92, RR 16, Temp 36.2C Pelvic Exam Dilation (cm): 3 Effacement (%): 50 station: -2 Amniotic membrane status: Intact Contractions Monitor mode: External Contraction frequency (min): 3 (irregular, painless, 2-7) Contraction duration (min): 1 Contraction pattern: Irregular Contraction intensity: Mild Status status: Category l Heart Rate Baseline: 125 Monitor Accelerations: Present Monitor Decelerations: Absent Monitor Variability: Moderate Assessment and Plan Comments: Assessment: at 37weeks IOL for GHTN Scoliosis Depression, anxiety and PTSD Cat 1 FHR tracing GBS pos, antibiotics indicated Constant back pain Ongoing induction Plan: Anesthesia called to dose epidural Reviewed Pitocin IV, plan to start after epidural bolus Ele agreeable to plan Encourage rest and hydration Start GBS prophylaxis when in active labor or with ROM Reassess in 4 hours or as needed
[2024-09-21] MEDS: LACTATED RINGERS 1,000 ML 100 ML IV (21:23)
[2024-09-21] MEDS: OXYTOCIN PREMIX 30 UNIT/500 ML PLAST..BAG IV (21:26)
[2024-09-21] MEDS: ZOLPIDEM 5 MG TABLET PO (22:19)
[2024-09-22] MEDS: AMPICILLIN 2,000 MG in SODIUM CHLORIDE 0.9% 100 ML 200 MG IV ×2 (01:40→13:15)
--- NOTE | 2024-09-22 02:15 | PM.OBPNLAB ---
Date/Time Date Patient Seen: 09/22/24 Time Patient Seen: 02:00 (Phone call to RN) Pain Control Pain control: epidural Comments: Comfortable with epidural, sleeping comfortably. Pitocin infusing at 4mu/min. VS: BP 122/85, HR 98, O2sat 98% Pelvic Exam Dilation (cm): 3 Effacement (%): 50 station: -2 Amniotic membrane status: Intact Contractions Monitor mode: External Pitocin rate (mU/min): 4 Contraction frequency (min): 3 (2-4, difficult to assess on tracing, RN reports to frequent to increase Pitocin,) Contraction duration (min): 1 (1-1.5) Contraction pattern: Irregular Status status: Category l Heart Rate Baseline: 130 Monitor Accelerations: Present Monitor Decelerations: Absent Monitor Variability: Moderate Assessment and Plan Comments: Assessment: at 37weeks IOL for GHTN Scoliosis Depression, anxiety and PTSD Cat 1 FHR tracing GBS pos, antibiotics indicated Plan: Increase Pitocin to 6mu/min, reassess in two hours if no cervical change stop Pitocin and place Misoprostol 25mcg vaginally Encourage rest, position changes, and hydration Reassess in 2 hours or as needed
--- NOTE | 2024-09-22 04:15 | PM.OBPNLAB ---
Date/Time Date Patient Seen: 09/22/24 Time Patient Seen: 04:00 (phone call) Pain Control Comments: Ele is sleeping hard, snoring. Comfortable with epidural. Pelvic Exam Dilation (cm): 3 Effacement (%): 50 station: -2 Amniotic membrane status: Intact Contractions Monitor mode: External Pitocin rate (mU/min): 0 (stopped) Contraction frequency (min): 3 (3-6) Contraction duration (min): 1 Contraction pattern: Irregular Status status: Category l Heart Rate Baseline: 125 Monitor Accelerations: Present Monitor Decelerations: Absent Monitor Variability: Moderate Assessment and Plan Comments: Assessment: at 37weeks IOL for GHTN Scoliosis Depression, anxiety and PTSD Cat 1 FHR tracing GBS pos, antibiotics indicated Plan: Misoprostol 25mcg vaginally after Pitocin off for one hour. Encourage rest, hydration, and position changes Reassess in 4 hours or as needed
[2024-09-22] MEDS: miSOPROStoL 25 MCG TABLET VAG ×2 (05:35→09:38)
[2024-09-22] MEDS: FENT 2MCG/ML BUPIV 0.125% EPI 200 MCG/100 ML PLAST..BAG 8 MCG EPIDURAL ×3 (07:34→21:11)
[2024-09-22] MEDS: BUTALB/APAP/CAFFEINE 50/325/40 TABLET 1 EACH PO (07:34)
[2024-09-22 07:54] VITALS: BP 145/94; PULSE 99
[2024-09-22] MEDS: LABETALOL 100 MG TABLET 200 MG PO ×2 (07:54→19:52)
--- NOTE | 2024-09-22 09:35 | PM.OBPNLAB ---
Date/Time Date Patient Seen: 09/22/24 Time Patient Seen: 09:15 Pain Control Pain control: epidural Comments: Ele was comfortable overnight able to sleep well after Ambien. Feeling occasional tightness in abdomen and mild pain in back but overall comfortable. Encouraged to sit upright and use patient controlled epidural button as needed if back pain increases. Oxytocin started in night after 4 hours of no cervical change, decision to stop and give vaginal misoprosotol. Discussed plan of care with Ele this morning, she is in good spirits and is good with another dose of vaginal misoprostol now. She received one dose of tylenol for headache with good relief. Drinking adequate amount of clear liquids, she is having a popsicle now and Gatorade. VS: BP 138/93, Resp 18, HR 88, O2sat 99%, temp 36.3C Pelvic Exam Dilation (cm): 3 Effacement (%): 50 station: -1 Amniotic membrane status: Intact Comments: Softening Contractions Monitor mode: External Pitocin rate (mU/min): 0 Contraction frequency (min): 3 (irregular, 3-8) Contraction pattern: Irregular Contraction intensity: Mild Status status: Category l Heart Rate Baseline: 125 Monitor Accelerations: Present Monitor Decelerations: Absent Monitor Variability: Moderate Assessment and Plan Comments: Assessment: at 37weeks IOL for GHTN Scoliosis Depression, anxiety and PTSD Cat 1 FHR tracing GBS pos, antibiotics indicated Plan: Misoprostol 25mcg now, with plan to start pitocin in four hours if needed and AROM Encourage rest, position changes and hydration Plan to start GBS prophylaxis prior to Pitocin/AROM Discussed plan of care with patient including misoprostol, pitocin and AROM she is agreeable to all. Reassess in 4 hours or as needed
[2024-09-22] MEDS: OXYTOCIN PREMIX 30 UNIT/500 ML PLAST..BAG IV (13:41)
--- NOTE | 2024-09-22 13:41 | PM.OBPNLAB ---
Date/Time Date Patient Seen: 09/22/24 Time Patient Seen: 13:42 Pain Control Pain control: epidural Comments: Ele is comfortable with epidural. Not feeling contractions, does have movement in her lower extremities. VS: BP 130/86, HR 106, Temp 97.8F, O2 sat 100% Pelvic Exam Dilation (cm): 4 Effacement (%): 50 station: -1 Amniotic membrane status: Ruptured (AROM copious amounts of clear fluid) Contractions Monitor mode: External Pitocin rate (mU/min): 2 (3-5) Contraction frequency (min): 3 (irregular, 3-5) Contraction duration (min): 1 (1-1.5) Contraction pattern: Irregular Contraction intensity: Moderate Status status: Category l Heart Rate Baseline: 125 Monitor Accelerations: Present Monitor Decelerations: Absent Monitor Variability: Moderate Assessment and Plan Assessment: induction ongoing Comments: Assessment: at 37weeks IOL for GHTN Scoliosis Depression, anxiety and PTSD Cat 1 FHR tracing GBS pos Plan: AROM Start antibiotics for GBS prophylaxix Titrate Pitocin as able Encourage rest, hydration, and ambulation Reassess in 4 hours or as needed
[2024-09-22] MEDS: AMPICILLIN 1,000 MG in SODIUM CHLORIDE 0.9% 100 ML 200 MG IV ×2 (16:48→19:53)
--- NOTE | 2024-09-22 17:48 | PM.OBPNLAB ---
Date/Time Date Patient Seen: 09/22/24 Time Patient Seen: 17:49 Pain Control Pain control: epidural Comments: Ele is still comfortable with epidural, and presses her button as needed. She started feeling constant rectal pressure an hour ago. VS: BP 139/87, HR 104, Temp 36.3C, Sat 97% Pelvic Exam Dilation (cm): 5.5 Effacement (%): 90 station: 0 Amniotic membrane status: Ruptured (clear fluid) Contractions Monitor mode: External Pitocin rate (mU/min): 11 Contraction frequency (min): 2 (irregular, 1-4) Contraction duration (min): 1 (1.5-3) Contraction pattern: Irregular Contraction intensity: Moderate Status status: Category l Heart Rate Baseline: 130 Monitor Accelerations: Present Monitor Decelerations: Absent Monitor Variability: Moderate Assessment and Plan Assessment: induction ongoing Comments: Assessment: at 37weeks IOL for GHTN Scoliosis Depression, anxiety and PTSD Cat 1 FHR tracing GBS pos, antibiotics indicated Clear fluid Plan: Continue to titrate Pitocin as able Encourage rest, position changes, and hydration Reassess in 4 hours or as needed
[2024-09-23] MEDS: AMPICILLIN 1,000 MG in SODIUM CHLORIDE 0.9% 100 ML 200 MG IV (00:03)
[2024-09-23] MEDS: MINERAL OIL 30 ML UDC TOP (02:46)
[2024-09-23] MEDS: fentaNYL 100 MCG/2 ML INJ IV (03:13)
--- NOTE | 2024-09-23 03:27 | PM.OBPNLAB ---
Date/Time Date Patient Seen: 09/22/24 Time Patient Seen: 21:30 Pain Control Pain control: epidural Comments: Ele comfortable with epidural; feeling pressure and requesting exam. VS BP - 111/76, HR 103 bpm, SpO2 100%, Temp 36.0 C Pelvic Exam Dilation (cm): 9.5 Effacement (%): 100 station: 0 Amniotic membrane status: Ruptured (1329, clear fluid) Contractions Monitor mode: External Pitocin rate (mU/min): 11 Contraction frequency (min): 3 (3-6) Contraction duration (min): 1 Contraction pattern: Irregular Contraction intensity: Moderate Status status: Category l Heart Rate Baseline: 125 Monitor Accelerations: Present Monitor Decelerations: Absent Monitor Variability: Moderate Assessment and Plan Assessment: induction ongoing Comments: at 37w1d GBS positive, adequately treated Rh positive Active labor FHR Cat 1 ROM x 8 hours Afebrile Continue present management. Begin pushing soon. Anticipate NSVB.
--- NOTE | 2024-09-23 03:34 | P.PCNOB_ITS ---
Events: Induced HTN Labor & Delivery Delivery date: 09/23/24 Delivery Time: 02:30 Intrapartal Events: None Cervical ripening method: per misoprostal protocol Induction method: per pitocin protocol Delivery augmentation: rupture of membranes Delivery monitor: external FHT Route of delivery: L&D Laceration Description: Periurethral - 1st Degree Quantitative Blood Loss: 1,424 Anesthesia Type: Epidural Narrative: After being found to be complete, coached pushing was initiated. Ele pushed effectively for a long 2nd stage. FHR was Cat 2 throughout 2nd stage due to periods of minimal variability. NSVB of baby at 0230, shoulders delivered easily. Baby was placed on maternal abdomen when Ele was ready to receive him. Apgars 9/9. They remained skin to skin while cord was cut. Pitocin in itiated for AMTSL per AWHONN guidelines. 3 vessel cord clamped and cut by Todd at approx 10 minutes of life after cord pulsing had stopped. Cord blood collected for blood typing. Perineum inspected and found to be intact with small, hemostatic laceration at introitus. Shallow periurethral lacerations noted bilaterally. Placenta manually removed after 100 mg fentanyl given IV due to small adherence at fundus; appeared to be intact. Initially fundus firm and bleeding minimal, then stream of bleeding noted, so pitocin increased to max dose, TXA given IV, misoprostol [address] Burkett called to bedside as Kate was inserted; arrived to support hemorrhage and did bedside ultrasound and confirmed no retained products and digital exam to confirm Kate in place and suction well applied. Blood loss measured and estimated loss is 1424 mL. Blood work ordered: CBC, fibrinogen, type and cross. Cefalexin IV 2 g given for infection prophylaxis. Mom and baby left stable and is being initiated. Ele and Todd are thrilled to meet their baby. Aisha Tello WELDER PL[employer]C, CNM, IBCLC [place] [facility] 1: Infant gender: Male Presentation: vertex Position: Right Occiput Anterior score (1 min): 9 score (5 min): 9 Plan for aftercare: Routine care
[2024-09-23] MEDS: TRANEXAMIC ACID 1,000 MG in SODIUM CHLORIDE 0.9% 100 ML 600 MG IV (03:56)
[2024-09-23] MEDS: miSOPROStoL 200 MCG TABLET 800 MCG PR (03:57)
[2024-09-23] MEDS: OXYTOCIN PREMIX 30 UNIT/500 ML PLAST..BAG 200 UNIT IV (04:00)
[2024-09-23 04:28] LABS: Add Manual Diff / Slide Review NO; Basophils Absolute Auto 100 /uL (0-100); Basophils Percent Auto 0.8 % (0-2); Eosinophils Absolute Auto 0 /uL (0-450); Eosinophils Percent Auto 0.3 % (2-4); Hematocrit 29.7 % (36-46); Hemoglobin 9.9 g/dL (12.0-16.0); Lymphocytes Absolute Auto 1000 /uL (1100-4500); Lymphocytes Percent Auto 5.8 % (25-40); Mean Corpuscular HGB Conc 33.5 % (30-36); Mean Corpuscular Hemoglobin 30.2 PG (26-34); Mean Corpuscular Volume 90.2 fL (80-100); Monocytes Absolute Auto 700 /uL (0-900); Neutrophils Absolute Auto 15000 /uL (1500-7000); Neutrophils Percent Auto 89.1 % (50-75); Platelet Count 172 X10^3/uL (150-400); Red Blood Cell Count 3.29 X10^6/uL (4.0-5.2); White Blood Cell Count 16.8 X10^3/uL (4.5-11.0)
[2024-09-23 05:19] LABS: Fibrinogen 498 mg/dL (238-498)
[2024-09-23] MEDS: CEFAZOLIN 2 GM/100 ML PREMIX 100 ML IV (05:42)
[2024-09-23] MEDS: DERMOPLAST SPRAY 20% 60 ML 1 SPRAY TOP (05:49)
[2024-09-23] MEDS: HYDROCODONE/ACET 5/325 TABLET 1 TAB PO ×4 (05:49→19:27)
--- NOTE | 2024-09-23 07:35 | PATH_ITS ---
[facility] Accession Number: [id number] No. of containers..01 Tissue . 01 Material submitted: . placenta - PLACENTA . 01 Clinical history: . GESTATIONAL (-INDUCED) HYPERTENSION WITHOUT COMPLICATIONS IRON-DEFICIENCY ANEMIA SECONDARY TO BLOOD LOSS FIRST DEGREE PERINEAL LACERATION DURING DELIVERY. . 01 Diagnosis: PLACENTA: Disrupted dorman placenta. Placental weight: 463 grams, greater than 50th percentile for estimated gestational age of 37 weeks (gestational age determined per the chart note). Features of maturation consistent with third trimester gestaional age. Unremarkable, centrally inserted three vessel umbilical cord; no funisitis, arteritis, true knots, or thrombi. Unremarkable membranes; no evidence of chorioamnionitis or features of meconium staining. Placental cotyledon parenchyma with intervillous thrombus. No evidence of villitis, viral cytopathic changes, mature infarcts, or features of abruption. [facility] 10/04/2024 1407 Local . 01 Electronically signed: . Vale Bonds MD, Pathologist NPI- [id number] . 01 Gross description: . Received in formalin with two identifiers and placenta, is a discoid dorman placenta with a trimmed weight of 463 grams and measuring 21.9 x 21.0 x 2.3 cm with no accessory lobes identified. . The membranes are yo and translucent with no thickening identified. They insert and rupture at the margin. . The cord is 37.2 cm in length by 1.2 cm in diameter with a leftward coil and an index of approximately 1.5 twists per 5 cm. The cord inserts centrally and sectioning reveals unremarkable trivascular architecture. . The surface is blue-jung with normal arborizing vasculature, no lesions identified, and the amnion is diffusely from the chorion. . The maternal surface is ragged with diffusely cotyledons and surface visible between cotyledons. Completeness cannot be confidently determined. No lesions or discoloration are identified. Sectioning reveals a red, spongy, friable cut surface with a pale yo discolored area, 1.5 cm in greatest dimension occupying less than 10% of the cut surface. No additional lesions are identified. Divorce Mediator sections are submitted as follows: . A1: Membrane roll and placental end of cord. A2: Membrane roll and end of cord. A3: Full thickness section with yo discoloration. A4-A6: Central full thickness sections. ([id number]) /MRV 09/25/2024 1729 Local . 01 Pathologist provided ICD-10: O13.9, D50.0, O70.0 . 01 CPT . 832770 Performed at: [address] [facility] [address], [place], [place] [id number] MD Jorge Santana MD Phone: [phone]
[2024-09-23] MEDS: HYDROMORPHONE 0.5 MG INJ 1 MG IV (09:40)
[2024-09-23 11:26] LABS: Add Manual Diff / Slide Review NO; Basophils Absolute Auto 100 /uL (0-100); Basophils Percent Auto 0.6 % (0-2); Eosinophils Absolute Auto 100 /uL (0-450); Eosinophils Percent Auto 0.3 % (2-4); Hematocrit 25.6 % (36-46); Hemoglobin 8.8 g/dL (12.0-16.0); Lymphocytes Absolute Auto 1700 /uL (1100-4500); Lymphocytes Percent Auto 10.2 % (25-40); Mean Corpuscular HGB Conc 34.3 % (30-36); Mean Corpuscular Hemoglobin 30.6 PG (26-34); Mean Corpuscular Volume 89.1 fL (80-100); Monocytes Absolute Auto 800 /uL (0-900); Monocytes Percent Auto 4.6 % (3-14); Neutrophils Absolute Auto 14000 /uL (1500-7000); Neutrophils Percent Auto 84.3 % (50-75); Platelet Count 191 X10^3/uL (150-400); Red Blood Cell Count 2.88 X10^6/uL (4.0-5.2); Red Cell Distribution Width 12.9 % (11.6-14.8); White Blood Cell Count 16.6 X10^3/uL (4.5-11.0)
[2024-09-23 11:30] LABS: Fibrinogen 452 mg/dL (238-498)
--- NOTE | 2024-09-23 11:58 | P.PNOB_ITS ---
Subjective - OB Subjective Interval history: Adela Adams is a 34F 8 hours s/p NSVB with manual removal of retained placenta and PPH (QBL of 1424 mL), treated with medication and RADHA. RADHA device remains in place with 230mL in the suction canister and no signs of continued bleeding. A Verdugo catheter was inserted and is draining large amounts of dark urine. She received her prophylactic dose of cefazolin IV. Adela is feeling well, without symptoms of hypotension, eager for RADHA and Verdugo to be removed. Todd remains supportive at her side and their is rooming in without concerns. Exam Vital Signs (past 8 hours): BP: 131/81, HR 102, T 36.1C Const General: healthy appearing Other: Fundus firm @ u and midline, minimal vaginal bleeding on pads. Verdugo removed during exam RADHA turned off to suction and closely observed with minimal bleeding noted for 30 minutes, then gently removed. Psych Mental Status: mental status grossly normal Objective Labs 09/23/24 10:57 09/21/24 10:15 Labs: Laboratory Results - last 24 hr 09/21/24 09/23/24 09/23/24 08:20 04:16 04:55 WBC 16.8 H D RBC 3.29 L Hgb 9.9 L Hct 29.7 L MCV 90.2 MCH 30.2 MCHC 33.5 RDW 13.0 Plt Count 172 Neut % (Auto) 89.1 H Lymph % (Auto) 5.8 L [place] % (Auto) 4.0 Eos % (Auto) 0.3 L Baso % (Auto) 0.8 Neut # (Auto) 24181 H Lymph # (Auto) 1000 L [place] # (Auto) 700 Eos # (Auto) 0 Baso # (Auto) 100 Fibrinogen 498 Blood Type B Positive Antibody Screen Negative Crossmatch See Detail 09/23/24 10:57 WBC 16.6 H RBC 2.88 L Hgb 8.8 L Hct 25.6 L MCV 89.1 MCH 30.6 MCHC 34.3 RDW 12.9 Plt Count 191 Neut % (Auto) 84.3 H Lymph % (Auto) 10.2 L [place] % (Auto) 4.6 Eos % (Auto) 0.3 L Baso % (Auto) 0.6 Neut # (Auto) 25824 H Lymph # (Auto) 1700 [place] # (Auto) 800 Eos # (Auto) 100 Baso # (Auto) 100 Fibrinogen 452 Blood Type Antibody Screen Crossmatch Assessment & Plan Assessment and Plan (1) Gestational hypertension: Status: Acute (2) Anemia, blood loss: Status: Acute Assessment and plan: Moderate, per labs at 7 hours s/p PPH (3) First degree perineal laceration during delivery: Status: Acute Plan day: 0 plan OB: routine care and other (see below) Comments: Labs were repeated to assess anemia post-hemorrhage and are stable IV iron sucrose for anemia, one dose today and 1 dose tomorrow Labetalol 200 mg BID for hypertension Continue close monitoring of vaginal bleeding Discussed possible discharge to home in 24 if bleeding and blood pressure remain stable and she feels ready. Encouraged mostly bed rest and utilize nursing support overnight to prioritize her rest and bonding with baby. Reviewed plan with OB back-up/ who is in agreement with plan of care. Will consult OB as needed. Time-Based Coding :: [TOTAL MINUTES] spent with patient and on the chart (including review of chart, obtaining history, exam, reviewing outside data, placing orders, documenting exam and treatment plan, and counseling patient) on [DATE].
[2024-09-23] MEDS: LABETALOL 100 MG TABLET 200 MG PO ×2 (12:32→23:18)
[2024-09-23] MEDS: IRON SUCROSE 200 MG in SODIUM CHLORIDE 0.9% 100 ML 220 MG IV (15:11)
[2024-09-24] MEDS: ACETAMINOPHEN 325 MG TABLET 650 MG PO (04:41)
[2024-09-24] MEDS: WITCH HAZEL/GLYCERIN PADS 1 EACH TOP (04:41)
[2024-09-24 06:55] LABS: Add Manual Diff / Slide Review NO; Basophils Absolute Auto 0 /uL (0-100); Basophils Percent Auto 0.3 % (0-2); Eosinophils Absolute Auto 100 /uL (0-450); Eosinophils Percent Auto 1.5 % (2-4); Hematocrit 23.7 % (36-46); Hemoglobin 8.2 g/dL (12.0-16.0); Lymphocytes Absolute Auto 1400 /uL (1100-4500); Lymphocytes Percent Auto 15.3 % (25-40); Mean Corpuscular HGB Conc 34.6 % (30-36); Mean Corpuscular Volume 89.5 fL (80-100); Monocytes Absolute Auto 500 /uL (0-900); Monocytes Percent Auto 5.4 % (3-14); Neutrophils Absolute Auto 7100 /uL (1500-7000); Neutrophils Percent Auto 77.5 % (50-75); Platelet Count 169 X10^3/uL (150-400); Red Blood Cell Count 2.65 X10^6/uL (4.0-5.2); Red Cell Distribution Width 13.1 % (11.6-14.8); White Blood Cell Count 9.1 X10^3/uL (4.5-11.0)
--- NOTE | 2024-09-24 08:51 | PM.OBDS.1 ---
Discharge Providers Provider Date of admission: 09/21/24 07:58 Discharge Date: 09/24/24 Primary care physician: Roosevelt Eugene MD Consults: 09/21/24 08:40 Consult to Anesthesiology Urgent Comment: Consulting Provider: Leonarda House Reason for consultation: Epidural 09/24/24 02:56 Consult to Rotary Helper Routine Comment: Discharge provider: Alda Christopher CNM Summary Hospital Course Date Patient Seen: 09/24/24 Time Patient Seen: 08:51 Diagnoses: NSVB, 1st degree laceration, retained placenta, hemorrhage Hospital Course: PPD1: Stable s/p NSVB with prolonged 2nd stage, manual removal of retained placenta and hemorrhage. Voiding, ambulating and breast feeding independently. Tolerating a general diet. No episodes of feeling light headed or dizzy. Pain is well controlled with PO medication. Eager for discharge to with her baby. Todd remains present and supportive and is planning to care for both Ele and their baby at home. Peripartum Data Infant Delivery Method: Natural Vaginal Laceration Description: Perineal - 1st Degree Episiotomy description: None Procedures: RADHA placed x 8 hours complications: uterine atony ( hemorrhage) and retained placenta [place] 1: Gender: Male Disposition of : home Discharge Diagnosis (1) Gestational hypertension: Status: Acute Problem Details: stable on labetalol (2) Anemia, blood loss: Start Date: 09/23/24 Status: Acute Problem Details: IV Fe x 2 doses (total 500mg) given prior to discharge (3) First degree perineal laceration during delivery: Status: Acute Time Spent with Patient Time attestation: Total time spent providing and/or coordinating discharge services: Objective Labs 09/24/24 06:15 09/21/24 10:15 Labs: Laboratory Results - last 24 hr 09/21/24 09/23/24 09/24/24 08:20 10:57 06:15 WBC 16.6 H 9.1 RBC 2.88 L 2.65 L Hgb 8.8 L 8.2 L Hct 25.6 L 23.7 L MCV 89.1 89.5 MCH 30.6 31.0 MCHC 34.3 34.6 RDW 12.9 13.1 Plt Count 191 169 Neut % (Auto) 84.3 H 77.5 H Lymph % (Auto) 10.2 L 15.3 L [place] % (Auto) 4.6 5.4 Eos % (Auto) 0.3 L 1.5 L Baso % (Auto) 0.6 0.3 Neut # (Auto) 14367 H 7100 H Lymph # (Auto) 1700 1400 [place] # (Auto) 800 500 Eos # (Auto) 100 100 Baso # (Auto) 100 0 Fibrinogen 452 Crossmatch See Detail Exam Vital Signs (past 8 hours): BP 115/63, HR 106, T 36.1C Temporal Other: Fundus firm @ U-1, Lochia scant, perineum with moderate edema. Psych Appearance: grossly normal Mental Status: mental status grossly normal Speech and Movement: speech and movement normal Mood: congruent mood Affect: normal affect Discharge Plan Discharge Plan Patient Disposition: Home Discharge orders & Medications Prescriptions: New hydrocodone-acetaminophen 5-325 mg Tablet 1 tab PO Q4HR PRN (Reason: Pain, Moderate (4-6)) 5 Days Qty: 12 0RF ibuprofen 600 mg Tablet 600 mg PO Q6HR PRN (Reason: Pain, Mild (1-3)) 14 Days Qty: 60 0RF labetalol 100 mg Tablet 200 mg PO BID 30 Days Qty: 120 0RF ferrous sulfate 300 mg (60 mg iron)/5 mL liquid 300 mg PO DAILY Qty: 120 2RF Continued Culturelle 10 billion cell capsule 1 cap PO DAILY Qty: 30 1RF quetiapine 200 mg tablet See Rx Instructions .ROUTE .COMPLEX Qty: 30 2RF Hold Instructions: med refills cancelled, not our patient Dose Instruction: TAKE 1 TABLET BY MOUTH DAILY Rx Instructions: TAKE 1 TABLET BY MOUTH DAILY hydroxyzine pamoate [Vistaril] 50 mg capsule 50 mg PO BID MDD 100mg PRN (Reason: anxiety) Qty: 60 3RF Discontinued mupirocin 2 % ointment 1 applic topical TID Qty: 22 2RF sulfamethoxazole-trimethoprim [Bactrim DS] 800-160 mg tablet 1 tab PO BID Qty: 42 0RF propranolol 20 mg tablet See Rx Instructions .ROUTE .COMPLEX Qty: 90 2RF Hold Instructions: refills cancelled with [facility], this is not our patient Dose Instruction: TAKE 1 TABLET BY MOUTH THREE TIMES DAILY Rx Instructions: TAKE 1 TABLET BY MOUTH THREE TIMES DAILY sertraline [Zoloft] 50 mg tablet 50 mg PO DAILY MDD 100mg 30 Days Qty: 30 3RF Follow up/Referrals: Roosevelt Eugene MD [Primary Care Provider] - Alda Christopher CNM [Advanced Hog Cooler] - (Follow-up in 2 weeks and 6 weeks as scheduled (appointment are in your email)) Diet/Activity/Treatments Diet: Diet as Tolerated and Regular Activity: bed rest x 2 weeks, no heavy lifting x 4 weeks, pelvic rest x 6 weeks Skin/Wound/Dressing Care Report to your healthcare provider any signs of infection, such as:: chills, fever, increased pain, unusual drainage and unusual redness Visit Report/Discharge Packet Stand Alone Forms: Patient Portal/API, Stroke Signs & Symptoms Discharge Data Primary Care Provider: Roosevelt Eugene
[2024-09-24] MEDS: IRON SUCROSE 300 MG in SODIUM CHLORIDE 0.9% 250 ML 176.667 MG IV (09:12)
[2024-09-24] MEDS: IBUPROFEN 600 MG TABLET PO (09:22)
[2024-09-24 10:37] VITALS: BP 124/80; PULSE 100
[2024-09-24] MEDS: LABETALOL 100 MG TABLET 200 MG PO (10:37)
== END 2024-09-24 13:00 | disposition home or self-care (01) | DRG 542 ==
PROVIDERS: Advanced Practice Midwife; Obstetrics & Gynecology; Admitting Provider Nurse Practitioner Obstetrics & Gynecology; Family Provider Family Medicine; PCP Family Medicine; Referring Provider Nurse Practitioner Obstetrics & Gynecology; Visit Provider Nurse Practitioner Obstetrics & Gynecology
DX: O13.4 Gestational [pregnancy-induced] hypertension without significant proteinuria, complicating childbirth (principal); O72.1 Other immediate postpartum hemorrhage; O99.892 Other specified diseases and conditions complicating childbirth; M41.9 Scoliosis, unspecified; Z3A.37 37 weeks gestation of pregnancy; Z37.0 Single live birth; O99.344 Other mental disorders complicating childbirth; F43.10 Post-traumatic stress disorder, unspecified; F31.9 Bipolar disorder, unspecified; F41.9 Anxiety disorder, unspecified; O99.824 Streptococcus B carrier state complicating childbirth; O76 Abnormality in fetal heart rate and rhythm complicating labor and delivery
CPT/HCPCS: 36415; 59025; 59050; 59200; 80053; 82570; 84156; 85025; 85384; 86850; 86900; 86901; 96372; A9270; G0379; J0290; J0690; J1171; J1756; J2270; J2590; J3010; S0191

== ENCOUNTER → 2025-03-12 17:02 | Outpatient (CLI) | payer OTHER, SELFPAY | PROVIDERS: Family Provider Family Medicine; PCP Family Medicine; Visit Provider Chiropractor | DX: J34.0 Abscess, furuncle and carbuncle of nose (principal) | CPT/HCPCS: 87070; 87075; 87205 ==

== ENCOUNTER → 2025-04-01 16:26 | Outpatient (CLI) | payer OTHER, SELFPAY | LOC: LAB 16:27 | PROVIDERS: Family Provider Family Medicine; PCP Family Medicine; Visit Provider Family Medicine | DX: T14.8XXA Other injury of unspecified body region, initial encounter (principal); L08.9 Local infection of the skin and subcutaneous tissue, unspecified | CPT/HCPCS: 87070; 87205 ==